=== PATIENT | female | born 1995 | race Caucasian/White ===

== ENCOUNTER 2017-03-29 05:52 | Emergency (ER) | payer OTHER, MEDICAID ==
--- NOTE | 2017-03-29 06:57 | EDM.PDOC ---
ED HPI GENERAL MEDICAL PROBLEM - General Chief Complaint: ENT Problem Stated Complaint: NOT FEELING WELL Time Seen by Provider: 03/29/17 06:45 Source of Information: Reports: Patient, RN History Limitations: Reports: No Limitations - History of Present Illness INITIAL COMMENTS - FREE TEXT/NARRATIVE: 22 yo female presents with cough and sore throat. Not able to sleep tonight. Has not been to the clinic. Has been ill since last . Smokes cigarettes. Did not have a flu vaccine this season. Cough is non-productive. Is using OTC agents without relief. Onset: Gradual Onset Date: 03/23/17 Duration: Day(s):, Getting Worse Location: Reports: Neck (throat), Chest Quality: Reports: Burning (throat) Severity: Moderate Improves with: Reports: None Worsens with: Reports: None Context: Reports: Other (No flu vaccine) Associated Symptoms: Reports: Cough. 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 Denies: Fever, Chills HEENT: Reports: Throat Pain. Denies: Throat Swelling Respiratory: Reports: Cough. Denies: Wheezing, Sputum, Hemoptysis Cardiovascular: Reports: No Symptoms GI/Abdominal: Reports: No Symptoms : Reports: No Symptoms Musculoskeletal: Reports: No Symptoms Skin: Reports: No Symptoms Neurological: Reports: No Symptoms Psychiatric: Reports: No Symptoms ED EXAM, GENERAL - Physical Exam Exam: See Below Exam Limited By: No Limitations General Appearance: Alert, WD/WN, No Apparent Distress, Obese Eye Exam: Bilateral Eye: Normal Inspection Ears: Normal External Exam, Normal Canal, Hearing Grossly Normal, Normal TMs Ear Exam: Bilateral Ear: Auricle Normal, Canal Normal, TM normal Nose: Normal Inspection, Normal Mucosa, No Blood Throat/Mouth: Normal Inspection, Normal Lips, Normal Oropharynx, Normal Voice, No Airway Compromise Head: Atraumatic, Normocephalic Neck: Normal Inspection, Supple, Non-Tender. No: Lymphadenopathy (R), Lymphadenopathy (L) Respiratory/Chest: No Respiratory Distress, Lungs Clear, Normal Breath Sounds, No Accessory Muscle Use Cardiovascular: Regular Rate, Rhythm, No Edema GI/Abdominal: Soft, Non-Tender, No Distention, Other (gravid) Back Exam: Normal Inspection. No: CVA Tenderness (R), CVA Tenderness (L) Extremities: Normal Inspection, Normal Range of Motion, Non-Tender, No Pedal Edema Neurological: Alert, Oriented, CN II-XII Intact, Normal Cognition, No Motor/ Sensory Deficits Psychiatric: Normal Affect, Normal Mood Skin Exam: Warm, Dry, Intact, Normal Color, No Rash Lymphatic: No Adenopathy Course - Vital Signs Text/Narrative:: Orthostats negative Last Recorded V/S: Last Vital Signs Temp 36.2 C 03/29/17 06:17 Pulse 113 H 03/29/17 06:17 Resp 20 03/29/17 06:17 BP 135/96 H 03/29/17 06:17 Pulse Ox 98 03/29/17 06:17 Orthostatic Blood Pressure [ 129/75 Standing] Orthostatic Blood Pressure [ 143/81 Sitting] Orthostatic Blood Pressure [ 147/88 Supine] - Orders/Labs/Meds Orders: Active Orders 24 hr Category Date Time Status Orthostatic Vital Signs [RC] ASDIRECTED Care 03/29/17 06:35 Active Departure - Departure Time of Disposition: 07:32 Disposition: Home, Self-Care 01 Condition: Fair Clinical Impression: Influenza-like illness - Discharge Information Prescriptions: Codeine/guaiFENesin [Robitussin AC] 5 - 10 ml PO Q4H PRN #1 bottle PRN Reason: Cough Referrals: Dione Hanks CNM [Primary Care Provider] - Forms: ED Department Discharge Additional Instructions: Drink ample fluids. Take Robitussin AC 1-2 tsp every 4 hrs as needed for cough. Take acetaminophen 1000 mg every 6 hrs for pain or fever control. Recheck with your doctor as needed. - My Orders Last 24 Hours: My Active Orders 03/29/17 06:35 Orthostatic Vital Signs [RC] ASDIRECTED - Assessment/Plan Last 24 Hours: My Active Orders 03/29/17 06:35 Orthostatic Vital Signs [RC] ASDIRECTED
== END 2017-03-29 07:41 | disposition home or self-care (01) ==
LOC: JP.ED 05:52
DX: O99.512 Diseases of the respiratory system complicating pregnancy, second trimester (principal); J11.1 Influenza due to unidentified influenza virus with other respiratory manifestations; O99.332 Smoking (tobacco) complicating pregnancy, second trimester; F17.210 Nicotine dependence, cigarettes, uncomplicated; Z3A.26 26 weeks gestation of pregnancy
CPT/HCPCS: 87804; 99284

== ENCOUNTER 2017-07-10 07:09 | Inpatient (IN) | payer MEDICAID ==
[2017-07-10] MEDS ORDERED: Acetaminophen 325 MG Tab PO PRN (07:58)
[2017-07-10] MEDS ORDERED: Sodium Chloride 0.9% 10 ML Syringe FLUSH PRN (07:58)
[2017-07-10] MEDS ORDERED: fentaNYL 100 MCG/2 ML SDV IVPUSH PRN (07:58)
[2017-07-10] MEDS ORDERED: Ondansetron 4 MG Tab.DIS PO PRN (07:58)
[2017-07-10] MEDS ORDERED: Misoprostol 50 MCG (1/2 of 100 MCG) Tab ONE (08:03)
[2017-07-10] MEDS ORDERED: Misoprostol 50 MCG (1/2 of 100 MCG) Tab VAG ONE ×2 (08:05→12:33)
--- NOTE | 2017-07-10 08:21 | PCM.LDHP ---
L&D History of Present Illness - General Date of Service: 07/10/17 (induction) Admit Problem/Dx: Patient Status Order with Admit Dx/Problem 07/10/17 07:58 Patient Status [ADT] Routine Admission Diagnosis/Problem Admission Diagnosis/Problem Source of Information: Patient History Limitations: Reports: No Limitations - History of Present Illness Introduction:: This 22 year old who is 40 3/7 weeks gestation presents for induction. Scan equaled dates, Just barely passed glucose 3 hr challenge. Today is spilling glucose. I have real concerns about gestation diabetes. Last ultrasound of baby at 36-37 weeks showed growth in the 82%. She also has morbid obesity and I have concern about pelvic outlet due to adipose tissue. Labs: ABO O neg and had Rhogam at 29 weeks Rubella non immune HIV negative GBS neg Timing/Duration: Reports: minutes: (3-4) Location, : Reports: Abdomen Quality: Reports: Pressure Severity: Mild Improves with: Reports: None Worsens with: Reports: None - Related Data Allergies/Adverse Reactions: Allergies Allergy/AdvReac Type Severity Reaction Status Date / Time No Known Allergies Allergy Verified 03/29/17 06:05 Home Medications: Home Meds Codeine/guaiFENesin [Robitussin AC] 5 - 10 ml PO Q4H PRN #1 bottle 03/29/17 [Rx] #103/Iron Fumarate/Fa [ ] 1 each PO DAILY 03/29/17 [ History] Past Medical History HEENT History: Reports: Impaired Vision 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: : 1 Para: 0 LMP (Approximate): ([place] 07/07/17) Neurological History: Reports: Concussion Psychiatric History: Reports: Anxiety, Depression, Suicide Attempt Social & Family History - Tobacco Use Smoking Status *Q: Current Every Day Smoker Years of Tobacco use: 5 Packs/Tins Daily: 0.5 - Caffeine Use Caffeine Use: Reports: Coffee, Tea - Recreational Drug Use Recreational Drug Use: No H&P Review of Systems - Review of Systems: Review Of Systems: See Below General: Reports: No Symptoms HEENT: Reports: No Symptoms Pulmonary: Reports: No Symptoms Cardiovascular: Reports: No Symptoms Gastrointestinal: Reports: No Symptoms Genitourinary: Reports: No Symptoms Musculoskeletal: Reports: No Symptoms Skin: Reports: No Symptoms Psychiatric: Reports: No Symptoms Neurological: Reports: No Symptoms Hematologic/Lymphatic: Reports: No Symptoms Immunologic: Reports: No Symptoms L&D Exam - Exam Exam: See Below - Vital Signs Weight: 302 lb 9.6 oz - OB Specific Contraction Intensity: Mild Movement: Active Heart Tones: Present Heart Tones per Min: 135 Heart Rate (FHR) Variability: Moderate (6-25 bmp) Presentation: Vertex Estimated Weight: 8-9 pounds - Martell Score Martell Score Cervix Position: Anterior Martell Score Consistency: Soft Martell Score Effacement: >80% Martell Score Dilation: 1-2 cm Martell Score 's Station: -1 ,0 Martell Score Total: 10 - Exam General: Alert, Oriented HEENT: PERRLA, Conjunctiva Clear, EACs Clear, EOMI, Hearing Intact, Mucosa Moist & [place], Nares Patent, Normal Nasal Septum, Posterior Pharynx Clear, TMs Clear Neck: Supple, Trachea Midline Lungs: Clear to Auscultation, Normal Respiratory Effort Cardiovascular: Regular Rate, Regular Rhythm GI/Abdominal Exam: Normal Bowel Sounds, Soft, Non-Tender, No Organomegaly, No Distention, No Abnormal Bruit, No Mass, Pelvis Stable Rectal Exam: Normal Exam, Normal Rectal Tone Genitourinary: Normal external exam, Normal bimanual exam, Normal speculum exam Back Exam: Normal Inspection, Full Range of Motion Extremities: Normal Inspection, Normal Range of Motion, Non-Tender, No Pedal Edema, Normal Capillary Refill Skin: Warm, Dry, Intact Neurological: Cranial Nerves Intact, Reflexes Equal Bilateral Psychiatric: Alert, Normal Affect, Normal Mood - Patient Data Lab Results Last 24 hrs: Laboratory Results - last 24 hr 07/10/17 07/10/17 Range/Units 07:35 07:44 WBC 8.8 (4.5-11.0) K/uL RBC 4.04 (3.30-5.50) M/uL Hgb 11.7 L (12.0-15.0) g/dL Hct 34.9 L (36.0-48.0) % MCV 86 (80-98) fL MCH 29 (27-31) pg MCHC 34 (32-36) % Plt Count 269 (150-400) K/uL Neut % (Auto) 69 H (36-66) % Lymph % (Auto) 20 L (24-44) % Angelina % (Auto) 10 H (2-6) % Eos % (Auto) 1 L (2-4) % Baso % (Auto) 0 (0-1) % Urine Color Yellow Urine Appearance Cloudy Urine pH 6.0 (4.5-8.0) Ur Specific [place] 1.015 (1.008-1.030) Urine Protein Negative (NEGATIVE) mg/dL Urine Glucose (UA) 100 H (NEGATIVE) mg/dL Urine Ketones Negative (NEGATIVE) mg/dL Urine Occult Blood Negative (NEGATIVE) Urine Nitrite Negative (NEGATIVE) Urine Bilirubin Negative (NEGATIVE) Urine Urobilinogen Normal (NORMAL) mg/dL Ur Leukocyte Esterase Negative (NEGATIVE) Urine RBC 0-5 (0-5) Urine WBC 0-5 (0-5) Ur Epithelial Cells Moderate Amorphous Sediment Rare Urine Bacteria Rare Urine Mucus Not seen Result Diagrams: 07/10/17 07:44 - Problem List (1) Morbid obesity due to excess calories SNOMED Code(s): 663914349 ICD Code: E66.01 - MORBID (SEVERE) OBESITY DUE TO EXCESS CALORIES Status: Acute Current Visit: Yes (2) Elective induction of labor planned SNOMED Code(s): 602846695 ICD Code: [id number] - Status: Acute Current Visit: Yes (3) SNOMED Code(s): 55401089 ICD Code: Z34.90 - ENCNTR FOR SUPRVSN OF NORMAL , UNSP, UNSP TRIMESTER Status: Acute Current Visit: Yes Qualifiers: Weeks of gestation: 40 weeks Qualified Code(s): Z3A.40 - 40 weeks gestation of Problem List Initiated/Reviewed/Updated: Yes Orders Last 24hrs: Active Orders 24 hr Category Date Time Status Patient Status [ADT] Routine ADT 07/10/17 07:58 Active Antiembolic Devices [RC] .Routine Care 07/10/17 08:00 Active Communication Order [RC] ASDIRECTED Care 07/10/17 07:58 Active Heart Tones [RC] PER UNIT ROUTINE Care 07/10/17 07:58 Active May Shower [RC] ASDIRECTED Care 07/10/17 07:58 Active Notify Provider Vital Signs [RC] PRN Care 07/10/17 07:58 Active Notify Provider [RC] PRN Care 07/10/17 07:58 Active Up ad Iesha [RC] ASDIRECTED Care 07/10/17 07:58 Active VTE/DVT Education [RC] Click to Edit Care 07/10/17 08:00 Active Vital Signs [RC] PER UNIT ROUTINE Care 07/10/17 07:58 Active Clear Liquid Diet [DIET] Diet 07/10/17 Lunch Active Acetaminophen [Tylenol] Med 07/10/17 07:58 Active 650 mg PO Q4H PRN Ondansetron [Zofran ODT] Med 07/10/17 07:58 Active 4 mg PO Q4H PRN Oxytocin/Normal Saline [Pitocin in NS 20 Units/1,000 ML Med 07/10/17 08:01 Active ] 20 unit in 1,000 ml IV ONETIME Sodium Chloride 0.9% [Saline Flush] Med 07/10/17 07:58 Active 10 ml FLUSH ASDIRECTED PRN fentaNYL [Sublimaze] Med 07/10/17 07:58 Active 100 mcg IVPUSH Q1H PRN DVT/VTE Prophylaxis Reflex [OM.PC] Routine Oth 07/10/17 07:58 Ordered Saline Lock Insert [OM.PC] Routine Oth 07/10/17 07:58 Ordered Resuscitation Status Routine Resus Stat 07/10/17 07:58 Ordered Medication Orders Acetaminophen (Tylenol) 650 mg PO Q4H PRN PRN Reason: Pain (Mild 1-3) and fever Fentanyl (Sublimaze) 100 mcg IVPUSH Q1H PRN PRN Reason: Pain (moderate 4-6) Oxytocin/Sodium Chloride (Pitocin In Ns 20 Units/1,000 Ml) 20 unit in 1,000 mls @ 999 mls/hr IV ONETIME ONE PRN Reason: Protocol Stop: 07/10/17 09:01 Ondansetron HCl (Zofran Odt) 4 mg PO Q4H PRN PRN Reason: Nausea/Vomiting Sodium Chloride (Saline Flush) 10 ml FLUSH ASDIRECTED PRN PRN Reason: Keep Vein Open Assessment/Plan Comment:: 07/10/17 40 3/7 weeks , G1, 22 yr old morbid obesity Marginal blood sugar control induction for above Plan: Misoprostol 50 mcg vaginally at 0810 up and about after protocol monitoring reassess at noon pain management per patient request plan for vaginal delivery later today
[2017-07-10] MEDS ORDERED: Oxytocin 10 Units/1 ML SDV ONE ×2 (14:28→14:43)
[2017-07-10] MEDS ORDERED: cefOXitin 1 GM Vial ONE (14:29)
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
[2017-07-10] MEDS ORDERED: ePHEDrine 50 MG/ML SDV ONE (14:42)
[2017-07-10] MEDS ORDERED: Ondansetron 4 MG/2 ML SDV ONE (14:43)
[2017-07-10] MEDS ORDERED: Lactated Ringers 1,000 ML ONE (14:43)
[2017-07-10] MEDS ORDERED: cefOXitin 2 GM Vial ONE (15:20)
[2017-07-10] MEDS ORDERED: HYDROmorphone/Normal Saline 15 MG/30 ML PCA IV PRN (16:38)
[2017-07-10] MEDS ORDERED: Naloxone 0.4 MG/ML SDV IV PRN (16:38)
[2017-07-10] MEDS ORDERED: Ondansetron 4 MG/2 ML SDV IVPUSH PRN (16:56)
[2017-07-10] MEDS: Dextrose 5%-Lactated Ringers 1,000 ML IV SCH (18:10)
[2017-07-10] MEDS: cefOXitin 2 GM in Sodium Chloride 0.9% 50 ML IV SCH (22:35)
[2017-07-11] MEDS: Dextrose 5%-Lactated Ringers 1,000 ML IV SCH ×2 (00:11→06:26)
[2017-07-11] MEDS ORDERED: Morphine PF 150 MG/30 ML PCA Syringe IV PRN (05:18)
[2017-07-11] MEDS: cefOXitin 2 GM in Sodium Chloride 0.9% 50 ML IV SCH ×4 (05:23→21:47)
--- NOTE | 2017-07-11 07:07 | PCM.SN ---
- Free Text/Narrative Note: Cameron is a 22 yo female POD1 s/p elective section without complications. Pt is doing well today with adequate urine output. Incisional pain controlled at 6/10 with morphine. Pt does not report any other pain. Vitally stable. Physical exam within normal limits. Plan: -D/C Mendosa at earliest convenience -Encourage ambulation as pain permits -Give colase to soften stools -Full diet -Discuss non-surgical weight loss with patient
[2017-07-11] MEDS ORDERED: Dextrose 5%-Lactated Ringers 1,000 ML IV SCH (07:09)
[2017-07-11] MEDS: Docusate Sodium 100 MG Cap PO SCH ×2 (10:21→21:10)
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
[2017-07-11] MEDS: Acetaminophen/oxyCODONE 325-5 MG Tab PO PRN ×3 (13:48→21:47)
[2017-07-11] MEDS: Ibuprofen 600 MG Tab PO SCH ×2 (13:49→20:55)
[2017-07-11] MEDS ORDERED: Measles, Mumps & Rubella Vaccine 0.5 ML SDV SUBCUT ONE (15:00)
[2017-07-11] MEDS: Sertraline 50 MG Tab PO SCH (21:11)
[2017-07-12] MEDS: Acetaminophen/oxyCODONE 325-5 MG Tab PO PRN ×5 (01:43→22:10)
[2017-07-12] MEDS: Ibuprofen 600 MG Tab PO SCH ×4 (01:45→20:18)
[2017-07-12] MEDS: cefOXitin 2 GM in Sodium Chloride 0.9% 50 ML IV SCH ×3 (03:05→17:14)
[2017-07-12] MEDS ORDERED: Bisacodyl 5 MG Tab PO ONE (08:00)
[2017-07-12] MEDS ORDERED: Magnesium Hydroxide 400 MG/5 ML Susp 30 ML Cup PO ONE (08:00)
--- NOTE | 2017-07-12 08:09 | PN ---
DATE OF SERVICE: 07/10/2017 SUBJECTIVE: Cameron is postop day 2, following a section. She has not had a bowel movement. Pain has controlled with Percocet and ibuprofen. Up, ambulating, has concerns about her vicky, and TOSIN drain. REVIEW OF SYSTEMS: Remainder of review of systems negative for any pertinent positives and negatives. OBJECTIVE: GENERAL: Cameron is a pleasant, 22-year-old female. Alert and orientated. VITAL SIGNS: TPR is 96.3, 79, and 16. Blood pressure 131/78. HEENT: Negative. NECK: Supple. HEART: Regular rate and rhythm. LUNGS: Clear. ABDOMEN: TOSIN drain is intact and has drained 50 mL of a light red drainage. Right Aquacel dressing is intact. EXTREMITIES: Without peripheral edema and no calf pain. ASSESSMENT: section, excision of peritoneal body associated with adherence to greater omentum for term with failure to progress and peritoneal body adherent to greater omentum. Date of surgery on 07/10/2017. Surgeon, José Ye MD. PLAN: 1. Remove Aquacel dressing. 2. May shower. 3. Use abdominal binder to prevent lower abdominal fold to fold over on to staple line. 4. Teach the patient how to strip, drain, measure, and record TOSIN drain 4 times a day. 5. Rx milk of magnesia 30 mL now. 6. 20 mg 1 hour after milk of magnesia. 7. Plan discharge in a.m. 8. Good pulmonary function. 9. We will evaluate p.r.n. or in a.m. Taylor Castro PA-C /[id number]
[2017-07-12] MEDS: Docusate Sodium 100 MG Cap PO SCH ×2 (09:23→22:03)
[2017-07-12] MEDS ORDERED: Measles, Mumps & Rubella Vaccine 0.5 ML SDV SUBCUT ONE (16:30)
[2017-07-12] MEDS ORDERED: Magnesium Citrate Solution 296 ML Bottle PO ONE (20:26)
[2017-07-12] MEDS: Sertraline 50 MG Tab PO SCH (22:03)
[2017-07-13] MEDS: Ibuprofen 600 MG Tab PO SCH ×2 (01:00→07:43)
[2017-07-13] MEDS: Acetaminophen/oxyCODONE 325-5 MG Tab PO PRN (02:31)
[2017-07-13] MEDS ORDERED: Doxycycline 100 MG Cap PO SCH (07:30)
[2017-07-13] MEDS: Docusate Sodium 100 MG Cap PO SCH (09:48)
--- NOTE | 2017-07-14 08:17 | DISCH ---
ADMISSION DIAGNOSES: 1. Term . 2. Elective induction of labor. 3. Morbid obesity due to excess of calories. 4. Elevated glucose tolerance test. DISCHARGE DIAGNOSES: section, excision of peritoneal body associated with adherence to greater omentum in term with failure to progress and peritoneal body adherent to greater omentum. DATE OF SURGERY: 07/10/2017. SURGEON: José Ye M.D. HISTORY: Cameron Mcgrath is a 22-year-old female, who presented with an elective induction, and she had failure to progress. After preoperative evaluation and discussion of possible risks and benefits, she wished to proceed with surgical procedure. HOSPITAL COURSE: Cameron had her surgery on 07/10/2017. She had no operative complications. On postop day #1, she was started on a regular diet, oral pain medication, [place] was discontinued, and she was started on a stool softener. On postop day #2, concern was for redness in the lower abdominal fold. Her Aquacel dressing was removed, and she did get a tub bath last evening. Reports bleeding in her mid incision, incision. Pain has been controlled, activity has been good, and able to be discharged to home. PHYSICAL EXAMINATION: GENERAL: Cameron Mcgrath is a 22-year-old female. VITAL SIGNS: Height is 5 feet and 1 inch. Weight is 302 pounds. TPR is 95.6, 100, and 18. Blood pressure 128/68. HEENT: Negative. NECK: Supple. HEART: Regular rate and rhythm. LUNGS: Clear. ABDOMEN: Sutures in place. She has a TOSIN drain, which has been draining 20 mL of a light pink drainage. Above her incision towards the mid left, she has a 4-inch area that is firm, pink, and slightly warm to touch. Reports more tenderness in that area. The sutures are intact. EXTREMITIES: Without peripheral edema and no calf tenderness. DISPOSITION: Discharged to home. CONDITION: Stable and improving. FOLLOWUP: Followup appointment with Taylor Castro PA-C, on 07/21/2017 at 10 a.m. HOME MEDICATIONS: 1. Percocet 5/325 mg 1 to 2 q.4 hours p.r.n. for pain, #30. 2. Colace 100 mg p.o. b.i.d., #100. 3. Doxycycline 100 mg p.o. q.12 hours, #20. 4. Ibuprofen 600 mg q.6 hours p.r.n. for lesser pain. 5. She is to resume her home medications of vitamin once daily and Sertraline 100 mg once a day. DIET: Usual diet as tolerated. Drink 8 to 10 glasses of water a day. ACTIVITY: As tolerated. No lifting over car seat and baby for 6 weeks. Driving: Do not drive on pain medication for at least 1 week. Shower/Bathing: May shower. No tub baths for 3 months. DISCHARGE INSTRUCTIONS: Notify provider if any fever, nausea, or vomiting. Keep the site clean and dry. Wear abdominal binder to avoid the lower abdominal folds to touch or rub each other. SPECIAL INSTRUCTIONS: Strip, empty, measure, and record TOSIN drain 4 times a day. Use incentive spirometer 10 times in a row every hour while awake. Thais Perkins was notified of tub bath and redness of the incision. She will see baby in 1 week and will check mother's incision at that time.
== END 2017-07-13 12:20 | disposition home or self-care (01) | DRG 766 ==
LOC: JP.OB 07:09 → JP.MS 15:36 → JP.OB 15:36 → OBSVTOIN 15:36
PROVIDERS: ADMIT Nurse Practitioner Family; ATTEND Surgery
PROC: 10D00Z1 Extraction of Products of Conception, Low, Open Approach (ICD-10-PCS; principal; 2017-07-10)
PROC: 0DBU0ZZ Excision of Omentum, Open Approach (ICD-10-PCS; 2017-07-10)
PROC: 0DBW0ZZ Excision of Peritoneum, Open Approach (ICD-10-PCS; 2017-07-10)
PROC: 3E0P7VZ Introduction of Hormone into Female Reproductive, Via Natural or Artificial Opening (ICD-10-PCS; 2017-07-10)
PROC: 3E033VJ Introduction of Other Hormone into Peripheral Vein, Percutaneous Approach (ICD-10-PCS; 2017-07-10)
DX: O62.0 Primary inadequate contractions (principal); O99.214 Obesity complicating childbirth; E66.01 Morbid (severe) obesity due to excess calories; O99.814 Abnormal glucose complicating childbirth; O99.334 Smoking (tobacco) complicating childbirth; Z3A.40 40 weeks gestation of pregnancy; Z37.0 Single live birth; O61.0 Failed medical induction of labor; O99.62 Diseases of the digestive system complicating childbirth; K66.0 Peritoneal adhesions (postprocedural) (postinfection); X37.2XXA Blizzard (snow)(ice), initial encounter; O77.0 Labor and delivery complicated by meconium in amniotic fluid
CPT/HCPCS: 36415; 51702; 59409; 80305; 81001; 85025; 85027; 85460; 86850; 86900; 86901; 88304; 88307; 90707; 94762; A9270-GY; G0010; J0694; J1170; J2270; J2405; J2590; J2790; J7042; J7050; J7120

== ENCOUNTER 2017-07-14 21:11 | Emergency (ER) | payer MEDICAID ==
--- NOTE | 2017-07-14 21:48 | EDM.PDOC ---
ED HPI GENERAL MEDICAL PROBLEM - General Chief Complaint: Wound Recheck Stated Complaint: INFECTED?? Time Seen by Provider: 07/14/17 21:39 Source of Information: Reports: Patient, Family, Old Records, RN Notes Reviewed History Limitations: Reports: No Limitations - History of Present Illness INITIAL COMMENTS - FREE TEXT/NARRATIVE: 22-year-old female presents emergency department today with concern about redness developing over her abdomen. She is postop day 4 from a section , states she's been doing well without however over the last 24 hours she's noticed some redness a little bit of warmth coming from her surgical site she does have a TOSIN drain in which has been producing fluid every 4 hours. - Related Data Allergies Allergy/AdvReac Type Severity Reaction Status Date / Time No Known Allergies Allergy Verified 03/29/17 06:05 Home Meds: Home Meds #103/Iron Fumarate/Fa [ ] 1 each PO DAILY 03/29/17 [ History] Sertraline [Zoloft] 100 mg PO BEDTIME 07/10/17 [History] Acetaminophen/oxyCODONE [Percocet 325-5 MG] 1 - 2 tab PO Q4H PRN #30 tablet 12/23 [Rx] Docusate Sodium [Colace] 100 mg PO BID #100 cap 07/13/17 [Rx] Doxycycline Calcium [IMW: Doxycycline] 100 mg PO Q12H #20 capsule 07/13/17 [Rx] Ibuprofen [IJD: Ibuprofen] 600 mg PO Q6H PRN #100 tablet 07/13/17 [Rx] Past Medical History HEENT History: Reports: Impaired Vision 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: Neurological History: Reports: Concussion Psychiatric History: Reports: Anxiety, Depression, Suicide Attempt Endocrine/Metabolic History: Reports: Diabetes, Gestational, Obesity/BMI 30+ - Infectious Disease History Infectious Disease History: Reports: None - Past Surgical History Female Surgical History: Reports: Section Social & Family History - Family History Family Medical History: Noncontributory - Tobacco Use Smoking Status *Q: Current Every Day Smoker Years of Tobacco use: 5 Packs/Tins Daily: 0.2 Used Tobacco, but Quit: No Month Tobacco Last Used: July Second Hand Smoke Exposure: No - Caffeine Use Caffeine Use: Reports: Coffee, Soda - Recreational Drug Use Recreational Drug Use: No ED ROS GENERAL - Review of Systems Review Of Systems: See Below Constitutional: Denies: Fever, Chills HEENT: Reports: No Symptoms Respiratory: Reports: No Symptoms Cardiovascular: Reports: No Symptoms GI/Abdominal: Reports: No Symptoms : Reports: No Symptoms Skin: Reports: Pallor, Rash, Other (Drainage) ED EXAM, SKIN/RASH Exam: See Below Text/Narrative:: Abdomen is soft and nontender surgical wound is clean dry and intact however there is erythema from the surgical wound up the umbilicus slightly warm to the touch firm Exam Limited By: No Limitations General Appearance: Alert, WD/WN, No Apparent Distress Respiratory/Chest: No Respiratory Distress, Lungs Clear, Normal Breath Sounds, No Accessory Muscle Use Cardiovascular: Regular Rate, Rhythm, No Murmur Course - Vital Signs Last Recorded V/S: Last Vital Signs Temp 95.8 F 07/14/17 21:28 Pulse 117 H 07/14/17 21:28 Resp 16 07/14/17 21:28 BP 153/94 H 07/14/17 21:28 Pulse Ox 98 07/14/17 21:28 - Orders/Labs/Meds Orders: Active Orders 24 hr Category Date Time Status CULTURE BODY FLUID + SMEAR [RM] Stat Lab 07/14/17 22:37 Ordered Ampicillin/Sulbactam Na [Unasyn] 3 gm Med 07/14/17 22:37 Stop Req Sodium Chloride 0.9% [Normal Saline] 100 ml IV ONETIME Medication Orders Ampicillin Sodium/Sulbactam (Sodium 3 gm/ Sodium Chloride) 100 mls @ 200 mls/ hr IV ONETIME ONE Stop: 07/14/17 23:06 Labs: Laboratory Tests 07/14/17 07/14/17 07/14/17 Range/Units 21:44 21:44 21:44 WBC 6.5 (4.5-11.0) K/uL RBC 3.34 (3.30-5.50) M/uL Hgb 9.6 L D (12.0-15.0) g/dL Hct 29.7 L (36.0-48.0) % MCV 89 (80-98) fL MCH 29 (27-31) pg MCHC 32 (32-36) % Plt Count 260 (150-400) K/uL Neut % (Auto) 63 (36-66) % Lymph % (Auto) 23 L (24-44) % [place] % (Auto) 12 H (2-6) % Eos % (Auto) 2 (2-4) % Baso % (Auto) 0 (0-1) % Sodium 143 (140-148) mmol/L Potassium 3.9 (3.6-5.2) mmol/L Chloride 108 (100-108) mmol/L Carbon Dioxide 26 (21-32) mmol/L Anion Gap 9.4 (5.0-14.0) mmol/L BUN 9 (7-18) mg/dL Creatinine 0.7 (0.6-1.0) mg/dL Est Cr Clr Drug Dosing 96.74 mL/min Estimated GFR (MDRD) > 60 (>60) Glucose 97 (74-106) mg/dL Lactic Acid 0.9 (0.4-2.0) mmol/L Calcium 8.1 L (8.5-10.1) mg/dL Meds: Medications Generic Name Dose Route Start Last Admin Trade Name Freq PRN Reason Stop Dose Admin Ampicillin Sodium/Sulbactam 100 mls @ 200 mls/hr 07/14/17 22:37 Sodium 3 gm/ Sodium Chloride IV 07/14/17 23:06 ONETIME ONE Departure - Departure Time of Disposition: 23:02 Disposition: Home, Self-Care 01 Condition: Good Clinical Impression: Cellulitis Qualifiers: Site of cellulitis: trunk Site of cellulitis of trunk: abdominal wall Qualified Code(s): L03.311 - Cellulitis of abdominal wall - Discharge Information Referrals: Karen Perkins CNM [Primary Care Provider] - Forms: ED Department Discharge Additional Instructions: Keep your follow-up appointment on Monday, take full course of antibiotics of clindamycin for your skin infection, stop the antibiotics of doxycycline call or return to the emergency department with worsening of symptoms - My Orders Last 24 Hours: My Active Orders 07/14/17 22:37 CULTURE BODY FLUID + SMEAR [RM] Stat Ampicillin/Sulbactam Na [Unasyn] 3 gm Sodium Chloride 0.9% [Normal Saline] 100 ml IV ONETIME - Assessment/Plan Last 24 Hours: My Active Orders 07/14/17 22:37 CULTURE BODY FLUID + SMEAR [RM] Stat Ampicillin/Sulbactam Na [Unasyn] 3 gm Sodium Chloride 0.9% [Normal Saline] 100 ml IV ONETIME Plan: Assessment Acuity = acute Site and laterality = cellulitis complicated patient is postop day 4 section Etiology = probable bacterial cause Manifestations = none Location of injury = Home Lab values = CBC, bMP, lactic acid all within normal limits Plan Called discussed case with Dr. Ye general surgeon chairperson anesthesiology recommended dose of Unasyn 3 g now she is currently on doxycycline will be stopped she's can be switched to clindamycin 300 mg every 8 hours 10 days This note was dictated using [employer] voice recognition software please call with any questions on syntax or cassia.
[2017-07-14] MEDS ORDERED: Ampicillin/Sulbactam Na 3 GM in Sodium Chloride 0.9% 100 ML IV ONE (22:37)
[2017-07-14] MEDS ORDERED: Non-Formulary Medication 1 Each IM STA (22:59)
[2017-07-14] MEDS ORDERED: Lidocaine 1% 20 ML MDV INJECT ONE (23:01)
[2017-07-14] MEDS ORDERED: Ampicillin/Sulbactam Na 3 GM Vial ONE (23:04)
== END 2017-07-14 23:32 | disposition home or self-care (01) ==
LOC: JP.ED 21:11
DX: O86.0 Infection of obstetric surgical wound (principal); L03.311 Cellulitis of abdominal wall; F17.210 Nicotine dependence, cigarettes, uncomplicated; O99.215 Obesity complicating the puerperium; O99.335 Smoking (tobacco) complicating the puerperium; Z79.899 Other long term (current) drug therapy
CPT/HCPCS: 36415; 80048; 83605; 85025; 87070; 87205; 99284; A9270-GY

== ENCOUNTER 2017-07-19 16:28 | Inpatient (IN) | payer MEDICAID ==
--- NOTE | 2017-07-19 16:59 | EDM.PDOC ---
ED HPI GENERAL MEDICAL PROBLEM - General Chief Complaint: Skin Complaint Stated Complaint: SENT FROM CLINIC/INFECTION Time Seen by Provider: 07/19/17 16:40 Source of Information: Reports: Patient, Provider History Limitations: Reports: No Limitations - History of Present Illness INITIAL COMMENTS - FREE TEXT/NARRATIVE: 22-year-old female who had a 9 days ago has been developing increased redness and tenderness through the incision over the last 5 days. Despite getting IV antibiotics in the clinic yesterday the provider feels it is getting worse, it looks worse. Patient is not running a fever but she's been feeling chilled over the last 2 days. The clinic sent her over to the emergency room. Surgery had not been called. Patient has no dysuria or shortness of breath. There is still a GP drain present on the right abdomen, it feels more tender and the patient thinks it's more erythematous but the drainage is unchanged. Onset: Gradual Severity: Moderate Associated Symptoms: Reports: Fever/Chills, Other (Incision drainage, abdominal pain) Abdominal Pain Score (Numeric/FACES): 5 - Related Data Allergies Allergy/AdvReac Type Severity Reaction Status Date / Time No Known Allergies Allergy Verified 03/29/17 06:05 Home Meds: Home Meds Sertraline [Zoloft] 100 mg PO BEDTIME 07/10/17 [History] Acetaminophen/oxyCODONE [Percocet 325-5 MG] 1 - 2 tab PO Q4H PRN #30 tablet 12/23 [Rx] Docusate Sodium [Colace] 100 mg PO BID #100 cap 07/13/17 [Rx] Ibuprofen [IJD: Ibuprofen] 600 mg PO Q6H PRN #100 tablet 07/13/17 [Rx] Clindamycin HCl [Cleocin] 300 mg PO TID 07/19/17 [History] Past Medical History HEENT History: Reports: Impaired Vision 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: Neurological History: Reports: Concussion Psychiatric History: Reports: Anxiety, Depression, Suicide Attempt Endocrine/Metabolic History: Reports: Diabetes, Gestational, Obesity/BMI 30+ - Infectious Disease History Infectious Disease History: Reports: None - Past Surgical History Female Surgical History: Reports: Section Social & Family History - Family History Family Medical History: Noncontributory - Tobacco Use Smoking Status *Q: Current Every Day Smoker Years of Tobacco use: 5 Packs/Tins Daily: 0.2 Used Tobacco, but Quit: No Month/Year Tobacco Last Used: July Second Hand Smoke Exposure: No - Caffeine Use Caffeine Use: Reports: Coffee, Soda - Recreational Drug Use Recreational Drug Use: No ED ROS GENERAL - Review of Systems Review Of Systems: See Below Constitutional: Reports: Chills HEENT: Reports: No Symptoms Respiratory: Denies: Shortness of Breath, Cough Cardiovascular: Denies: Chest Pain GI/Abdominal: Reports: Abdominal Pain. Denies: Diarrhea : Reports: No Symptoms Skin: Reports: Erythema Neurological: Reports: No Symptoms ED EXAM, SKIN/RASH Exam: See Below Exam Limited By: No Limitations General Appearance: Alert, No Apparent Distress Respiratory/Chest: No Respiratory Distress, Lungs Clear Cardiovascular: Regular Rate, Rhythm GI/Abdominal: Other (Patient has a fairly large incision over the lower abdomen pannus closed by vicky. There is a significant amount of erythema extending from the incision. There is also firmness under the erythema and tenderness. The TOSIN drain site has some erythema around the exit site.) Course - Vital Signs Last Recorded V/S: Last Vital Signs Temp 97.4 F 07/21/17 03:20 Pulse 67 07/21/17 03:20 Resp 16 07/21/17 03:20 BP 141/73 H 07/21/17 03:20 Pulse Ox 98 07/21/17 03:20 - Orders/Labs/Meds Orders: Medication Orders Acetaminophen (Tylenol) 650 mg PO Q4H PRN PRN Reason: Pain (Mild 1-3)/fever Last Admin: 07/20/17 11:47 Dose: 650 mg Admin: 07/19/17 23:19 Dose: 650 mg Albuterol (Proventil Neb Soln) 2.5 mg NEB Q4H PRN PRN Reason: Shortness Of Breath/wheezing Diphenhydramine HCl (Benadryl) 25 mg PO Q4H PRN PRN Reason: Itching Last Admin: 07/20/17 22:16 Dose: 25 mg Admin: 07/20/17 13:39 Dose: 25 mg Docusate Sodium (Colace) 100 mg PO BID EVETTE Last Admin: 07/20/17 20:37 Dose: Not Given Admin: 07/20/17 08:44 Dose: 100 mg Admin: 07/19/17 22:12 Dose: Not Given Piperacillin/Tazobactam/ (Dextrose 3.375 gm/ Premix) 50 mls @ 100 mls/hr IV Q6H [facility] Last Admin: 07/21/17 02:26 Dose: 100 mls/hr Admin: 07/20/17 20:30 Dose: 100 mls/hr Admin: 07/20/17 15:25 Dose: 100 mls/hr Admin: 07/20/17 08:45 Dose: 100 mls/hr Vancomycin HCl 2 gm/ Sodium (Chloride) 500 mls @ 167 mls/hr IV Q12H [facility] Last Admin: 07/20/17 22:13 Dose: 167 mls/hr Admin: 07/20/17 10:58 Dose: 250 mls/hr Ibuprofen (Motrin) 600 mg PO Q6H PRN PRN Reason: Pain Last Admin: 07/20/17 22:12 Dose: 600 mg Lorazepam (Ativan) 1 mg IV Q6H PRN PRN Reason: Nausea/Vomiting Morphine Sulfate (Morphine) 2 mg IVPUSH Q2H PRN PRN Reason: Pain (severe 7-10) Nicotine (Habitrol) 14 mg TRDERM DAILY [facility] Last Admin: 07/20/17 08:44 Dose: 14 mg Nicotine Polacrilex (Nicorelief) 2 mg CHEW Q2H PRN PRN Reason: Withdrawal Symptoms Ondansetron HCl (Zofran Odt) 4 mg PO Q6H PRN PRN Reason: Nausea able to take PO Ondansetron HCl (Zofran) 4 mg IV Q4H PRN PRN Reason: Nausea/Vomiting Oxycodone HCl (Oxycodone) 5 mg PO Q4H PRN PRN Reason: Pain (moderate 4-6) Sertraline HCl (Zoloft) 100 mg PO BEDTIME [facility] Last Admin: 07/20/17 20:29 Dose: 100 mg Admin: 07/19/17 21:16 Dose: 100 mg Sodium Chloride (Saline Flush) 10 ml FLUSH ASDIRECTED PRN PRN Reason: Keep Vein Open Last Admin: 07/19/17 17:39 Dose: 10 ml Zolpidem Tartrate (Ambien) 5 mg PO BEDTIME PRN PRN Reason: Sleep Labs: Laboratory Tests 07/19/17 07/19/17 Range/Units 16:50 16:50 WBC 6.4 (4.5-11.0) K/uL RBC 3.63 (3.30-5.50) M/uL Hgb 10.6 L (12.0-15.0) g/dL Hct 31.5 L (36.0-48.0) % MCV 87 (80-98) fL MCH 29 (27-31) pg MCHC 34 (32-36) % Plt Count 350 (150-400) K/uL Neut % (Auto) 63 (36-66) % Lymph % (Auto) 24 (24-44) % [place] % (Auto) 11 H (2-6) % Eos % (Auto) 2 (2-4) % Baso % (Auto) 1 (0-1) % Sodium 142 (140-148) mmol/L Potassium 4.1 (3.6-5.2) mmol/L Chloride 106 (100-108) mmol/L Carbon Dioxide 26 (21-32) mmol/L Anion Gap 9.8 (5.0-14.0) mmol/L BUN 8 (7-18) mg/dL Creatinine 0.7 (0.6-1.0) mg/dL Est Cr Clr Drug Dosing 96.74 mL/min Estimated GFR (MDRD) > 60 (>60) Glucose 84 (74-106) mg/dL Calcium 8.5 (8.5-10.1) mg/dL Meds: Medications Generic Name Dose Route Start Last Admin Trade Name Freq PRN Reason Stop Dose Admin Acetaminophen 650 mg 07/19/17 20:51 07/20/17 11:47 Tylenol PO 650 mg Q4H PRN Administration Pain (Mild 1-3)/fever Albuterol 2.5 mg 07/19/17 20:51 Proventil Neb Soln NEB Q4H PRN Shortness Of Breath/wheezing Diphenhydramine HCl 25 mg 07/20/17 13:21 07/20/17 22:16 Benadryl PO 25 mg Q4H PRN Administration Itching Docusate Sodium 100 mg 07/19/17 21:00 07/20/17 20:37 Colace PO Not Given BID EVETTE Piperacillin/Tazobactam/ 50 mls @ 100 mls/hr 07/20/17 09:00 07/21/17 02:26 Dextrose 3.375 gm/ Premix IV 100 mls/hr Q6H EVETTE Administration Vancomycin HCl 2 gm/ Sodium 500 mls @ 167 mls/hr 07/20/17 10:00 07/20/17 22: 13 Chloride IV 167 mls/hr Q12H EVETTE Administration Ibuprofen 600 mg 07/20/17 21:54 07/20/17 22:12 Motrin PO 600 mg Q6H PRN Administration Pain Lorazepam 1 mg 07/19/17 20:51 Ativan IV Q6H PRN Nausea/Vomiting Morphine Sulfate 2 mg 07/19/17 20:51 Morphine IVPUSH Q2H PRN Pain (severe 7-10) Nicotine 14 mg 07/20/17 09:00 07/20/17 08:44 Habitrol TRDERM 14 mg DAILY EVETTE Administration Nicotine Polacrilex 2 mg 07/19/17 20:51 Nicorelief CHEW Q2H PRN Withdrawal Symptoms Ondansetron HCl 4 mg 07/19/17 20:51 Zofran Odt PO Q6H PRN Nausea able to take PO Ondansetron HCl 4 mg 07/19/17 20:51 Zofran IV Q4H PRN Nausea/Vomiting Oxycodone HCl 5 mg 07/19/17 20:51 Oxycodone PO Q4H PRN Pain (moderate 4-6) Sertraline HCl 100 mg 07/19/17 21:00 07/20/17 20:29 Zoloft PO 100 mg BEDTIME EVETTE Administration Sodium Chloride 10 ml 07/19/17 17:17 07/19/17 17:39 Saline Flush FLUSH 10 ml ASDIRECTED PRN Administration Keep Vein Open Zolpidem Tartrate 5 mg 07/19/17 20:51 Ambien PO BEDTIME PRN Sleep Discontinued Medications Generic Name Dose Route Start Last Admin Trade Name Freq PRN Reason Stop Dose Admin Sodium Chloride 80 mls @ 3 mls/sec 07/19/17 17:30 07/19/17 17:40 Normal Saline IV 3 mls/sec ASDIRECTED EVETTE Administration Piperacillin Sod/Tazobactam 50 mls @ 100 mls/hr 07/19/17 21:00 07/20/17 02:52 Sod 3.375 gm/ Sodium Chloride IV 100 mls/hr Q6H EVETTE Administration Sodium Chloride 1,000 mls @ 125 mls/hr 07/19/17 20:51 07/20/17 07:57 Normal Saline IV 125 mls/hr ASDIRECTED EVETTE Administration Vancomycin HCl 2,000 mg/ 500 mls @ 250 mls/hr 07/19/17 22:00 07/19/17 23:18 Dextrose/Water IV 250 mls/hr Q12H EVETTE Administration Dextrose/Water Confirm 07/19/17 22:48 07/19/17 23:21 Dextrose 5% In Water Administered 07/19/17 22:49 Not Given Dose 500 mls @ as directed .ROUTE .STK-MED ONE Iopamidol 150 ml 07/19/17 17:30 07/19/17 17:40 Isovue-300 (61%) IV 150 ml . DIRECTED EVETTE Administration Vancomycin HCl 2 gm 07/19/17 21:00 07/20/17 18:38 Vancomycin IV Not Given Q12H EVETTE Vancomycin HCl Confirm 07/19/17 22:39 07/19/17 23:21 Vancomycin Administered 07/19/17 22:40 Not Given Dose 2,000 mg .ROUTE .STK-MED ONE - Re-Assessments/Exams Free Text/Narrative Re-Assessment/Exam: 07/19/17 16:59 White count and electrolytes will be checked, patient will be sent back for a CT the abdomen and pelvis with IV contrast to assess for postoperative abscess. It is concerning that she is getting IV antibiotics but worsening. 07/19/17 18:45 White count was normal, CT with IV contrast shows a fluid collection near the rectus abdominis but likely seroma or hematoma. She'll be admitted for IV antibiotics over the next 48 hours. Departure - Departure Time of Disposition: 20:40 Disposition: Admitted As Inpatient 68 Condition: Fair Clinical Impression: Seroma after procedure Cellulitis Qualifiers: Site of cellulitis: trunk Site of cellulitis of trunk: abdominal wall Qualified Code(s): L03.311 - Cellulitis of abdominal wall - Discharge Information
[2017-07-19] MEDS ORDERED: Sodium Chloride 0.9% 10 ML Syringe FLUSH PRN (17:17)
[2017-07-19] MEDS ORDERED: Iopamidol 612 MG/ML 150 ML Bottle IV SCH (17:30)
[2017-07-19] MEDS ORDERED: Sodium Chloride 0.9% 80 ML IV SCH (17:30)
[2017-07-19] MEDS ORDERED: LORazepam 2 MG/ML SDV IV PRN (20:51)
[2017-07-19] MEDS ORDERED: Ondansetron 4 MG/2 ML SDV IV PRN (20:51)
[2017-07-19] MEDS ORDERED: oxyCODONE 5 MG Tab PO PRN (20:51)
[2017-07-19] MEDS ORDERED: Morphine 2 MG/ML Syringe IVPUSH PRN (20:51)
[2017-07-19] MEDS ORDERED: Ondansetron 4 MG Tab.DIS PO PRN (20:51)
[2017-07-19] MEDS ORDERED: Albuterol 0.083% 2.5 MG/3 ML Neb Soln NEB PRN (20:51)
[2017-07-19] MEDS ORDERED: Zolpidem 5 MG Tab PO PRN (20:51)
[2017-07-19] MEDS ORDERED: Nicotine Polacrilex 2 MG Gum CHEW PRN (20:51)
[2017-07-19] MEDS ORDERED: Vancomycin 1 GM SDV IV SCH (21:00)
[2017-07-19] MEDS: Sertraline 50 MG Tab PO SCH (21:16)
[2017-07-19] MEDS: Piperacillin/Tazobactam 3.375 GM in Sodium Chloride 0.9% 50 ML IV SCH (21:17)
[2017-07-19] MEDS: Docusate Sodium 100 MG Cap PO SCH (22:12)
[2017-07-19] MEDS ORDERED: Vancomycin 1,000 MG SDV ONE (22:39)
[2017-07-19] MEDS ORDERED: Dextrose 5% in Water 500 ML ONE (22:48)
--- NOTE | 2017-07-19 22:59 | PCM.HP ---
H&P History of Present Illness - General Admit Problem/Dx: Admission Diagnosis/Problem Admission Diagnosis/Problem Cellulitis of abdominal wall Source of Information: Patient, Family (Grandmother, Sibling, Cousin) History Limitations: Reports: No Limitations - History of Present Illness Initial Comments - Free Text/Narative: 22-year-old female who had a 9 days ago has been developing increased redness and tenderness through the incision over the last 5 days. Despite getting IV antibiotics in the clinic yesterday the provider feels it is getting worse, it looks worse. Patient is not running a fever but she's been feeling chilled over the last 2 days. The clinic sent her over to the emergency room. Surgery had not been called. Patient has no dysuria or shortness of breath. There is still a GP drain present on the right abdomen, it feels more tender and the patient thinks it's more erythematous but the drainage is unchanged. Onset: Gradual,Severity: Moderate,Associated Symptoms: Reports: Fever/Chills, Incision drainage, abdominal pain White count and electrolytes will be checked, patient will be sent back for a CT the abdomen and pelvis with IV contrast to assess for postoperative abscess. It is concerning that she is getting IV antibiotics but worsening. White count was normal, CT with IV contrast shows a fluid collection near the rectus abdominis but likely seroma or hematoma. She'll be admitted for IV antibiotics over the next 48 hours. Onset of Symptoms: Reports: Gradual Duration of Symptoms: Reports: Day(s): (5) Location: Reports: Abdomen Quality: Reports: Ache, Burning Severity: Moderate Improves with: Reports: None Worsens with: Reports: None Context: Reports: Other ( on 07/15/2017) Associated Symptoms: Reports: Fever/Chills Abdominal Pain Score (Numeric/FACES): 5 - Related Data Allergies/Adverse Reactions: Allergies Allergy/AdvReac Type Severity Reaction Status Date / Time No Known Allergies Allergy Verified 03/29/17 06:05 Home Medications: Home Meds Sertraline [Zoloft] 100 mg PO BEDTIME 07/10/17 [History] Acetaminophen/oxyCODONE [Percocet 325-5 MG] 1 - 2 tab PO Q4H PRN #30 tablet 12/23 [Rx] Docusate Sodium [Colace] 100 mg PO BID #100 cap 07/13/17 [Rx] Ibuprofen [IJD: Ibuprofen] 600 mg PO Q6H PRN #100 tablet 07/13/17 [Rx] Clindamycin HCl [Cleocin] 300 mg PO TID 07/19/17 [History] Past Medical History HEENT History: Reports: Impaired 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: Neurological History: Reports: Concussion Psychiatric History: Reports: Anxiety, Depression, Suicide Attempt Endocrine/Metabolic History: Reports: Diabetes, Gestational, Obesity/BMI 30+ - Infectious Disease History Infectious Disease History: Reports: None - Past Surgical History Female Surgical History: Reports: Section Social & Family History - Family History Family Medical History: Noncontributory - Tobacco Use Smoking Status *Q: Current Every Day Smoker Years of Tobacco use: 5 Packs/Tins Daily: 0.3 Used Tobacco, but Quit: No Month/Year Tobacco Last Used: July Second Hand Smoke Exposure: Yes - Caffeine Use Caffeine Use: Reports: Coffee, Tea - Recreational Drug Use Recreational Drug Use: No H&P Review of Systems - Review of Systems: Review Of Systems: See Below General: Reports: Chills, Malaise HEENT: Reports: No Symptoms Pulmonary: Reports: No Symptoms Cardiovascular: Reports: No Symptoms Gastrointestinal: Reports: Abdominal Pain, Other ( 07/15/17) Genitourinary: Reports: No Symptoms Musculoskeletal: Reports: No Symptoms Skin: Reports: Bruising, Erythema, Other (cellulitis of incision) Psychiatric: Reports: Depression Neurological: Reports: No Symptoms Hematologic/Lymphatic: Reports: No Symptoms Immunologic: Reports: No Symptoms Exam - Exam Exam: See Below - Vital Signs Vital Signs: Last Vital Signs Temp 37.1 C 07/19/17 20:45 Pulse 95 07/19/17 20:45 Resp 16 07/19/17 20:45 BP 187/106 H 07/19/17 20:45 Pulse Ox 98 07/19/17 20:45 Weight: 130.2 kg - Exam General: Alert, Oriented, Cooperative, Mild Distress HEENT: PERRLA, Hearing Intact, Mucosa Moist & Dobson, Nares Patent, Normal Nasal Septum, Posterior Pharynx Clear, Conjunctiva Clear, EOMI, EACs Clear, TMs Clear Neck: Supple, Trachea Midline, 2 Lungs: Clear to Auscultation, Normal Respiratory Effort Cardiovascular: Regular Rate, Regular Rhythm GI/Abdominal Exam: Normal Bowel Sounds, Tender, Other (Other (Patient has a fairly large incision over the lower abdomen pannus closed by vicky. There is a significant amount of erythema extending from the incision. There is also firmness under the erythema and tenderness. The TOSIN drain site has some erythema around the exit site.)) (Female) Exam: Deferred Rectal (Female) Exam: Deferred Back Exam: Normal Inspection, Full Range of Motion, NT Extremities: Normal Inspection, Normal Range of Motion, Non-Tender, No Pedal Edema, Normal Capillary Refill Skin: Ecchymosis, Incision, Other (Other (Patient has a fairly large incision over the lower abdomen pannus closed by vicky. There is a significant amount of erythema extending from the incision. There is also firmness under the erythema and tenderness. The TOSIN drain site has some erythema around the exit site.)) Neurological: Cranial Nerves Intact, Reflexes Equal Bilateral, Strength Equal Bilateral, Normal Gait, Normal Speech, Normal Tone Neuro Extensive - Mental Status: Alert, Oriented x3, Normal Mood/Affect, Normal Cognition, Memory Intact Neuro Extensive - Motor, Sensory, Reflexes: CN II-XII Intact, Normal Gait, Normal Reflexes Psychiatric: Alert, Normal Affect, Normal Mood, Other (tearful and sad due to being in hospital for complication with incision and 9 day old .) - Patient Data Lab Results Last 24 hrs: Laboratory Results - last 24 hr 07/19/17 Range/Units 20:50 Lactic Acid 1.3 (0.4-2.0) mmol/L Result Diagrams: 07/19/17 16:50 07/19/17 16:50 *Q Meaningful Use (ADM) - VTE *Q VTE Criteria *Q: - Stroke *Q Stroke Criteria *Q: - AMI *Q AMI Criteria *Q: - Problem List (1) Tobacco use SNOMED Code(s): 999542221 ICD Code: Z72.0 - TOBACCO USE Status: Acute Priority: Medium Current Visit: Yes (2) Cellulitis SNOMED Code(s): 685556499 ICD Code: L03.90 - CELLULITIS, UNSPECIFIED Status: Acute Priority: High Current Visit: Yes Qualifiers: Site of cellulitis: trunk Site of cellulitis of trunk: abdominal wall Qualified Code(s): L03.311 - Cellulitis of abdominal wall (3) started SNOMED Code(s): 878641974 ICD Code: [id number] - Status: Acute Current Visit: Yes Problem List Initiated/Reviewed/Updated: Yes Orders Last 24hrs: Active Orders 24 hr Category Date Time Status Patient Status [ADT] Routine ADT 07/19/17 20:51 Active Ambulate [RC] QID Care 07/19/17 20:51 Active Intake and Output [RC] QSHIFT Care 07/19/17 20:51 Active Notify Provider Consults [RC] .PRN Care 07/19/17 20:51 Active Notify Provider Vital Signs [RC] .PRN Care 07/19/17 20:51 Active Oxygen Therapy [RC] .PRN Care 07/19/17 20:51 Active Pulse Oximetry [RC] .PRN Care 07/19/17 20:51 Active RT Aerosol Therapy [RC] ASDIRECTED Care 07/19/17 20:51 Active Up ad Iesha [RC] ASDIRECTED Care 07/19/17 20:51 Active Vital Signs [RC] Q4H Care 07/19/17 20:51 Active Consult to In School Suspension Aide [CONS] Routine Cons 07/19/17 20:51 Active Consult to Physician [CONS] Routine Cons 07/19/17 20:51 Ordered Consult to Spiritual Care [CONS] Routine Cons 07/19/17 20:51 Active Regular Diet [DIET] Diet 07/19/17 Dinner Active BASIC METABOLIC PANEL,BMP [CHEM] AM Lab 07/20/17 05:11 Ordered CBC WITH AUTO DIFF [HEME] AM Lab 07/20/17 05:11 Ordered Acetaminophen [Tylenol] Med 07/19/17 20:51 Active 650 mg PO Q4H PRN Albuterol [Proventil Neb Soln] Med 07/19/17 20:51 Active 2.5 mg NEB Q4H PRN Docusate Sodium [Colace] Med 07/19/17 21:00 Active 100 mg PO BID LORazepam [Ativan] Med 07/19/17 20:51 Active 1 mg IV Q6H PRN Morphine Med 07/19/17 20:51 Active 2 mg IVPUSH Q2H PRN Nicotine Polacrilex [Nicorelief] Med 07/19/17 20:51 Active 2 mg CHEW Q2H PRN Nicotine [Habitrol] Med 07/20/17 09:00 Active 14 mg TRDERM DAILY Ondansetron [Zofran ODT] Med 07/19/17 20:51 Active 4 mg PO Q6H PRN Ondansetron [Zofran] Med 07/19/17 20:51 Active 4 mg IV Q4H PRN Piperacillin/Tazobactam [Zosyn] 3.375 gm Med 07/19/17 21:00 Active Sodium Chloride 0.9% [Normal Saline] 50 ml IV Q6H Sertraline [Zoloft] Med 07/19/17 21:00 Active 100 mg PO BEDTIME Sodium Chloride 0.9% [Normal Saline] 1,000 ml Med 07/19/17 20:51 Active IV ASDIRECTED Vancomycin Med 07/19/17 21:00 Pending 2 gm IV Q12H Vancomycin 2,000 mg Med 07/19/17 22:00 Active Dextrose 5% in Water 500 ml IV Q12H Zolpidem [Ambien] Med 07/19/17 20:51 Active 5 mg PO BEDTIME PRN oxyCODONE Med 07/19/17 20:51 Active 5 mg PO Q4H PRN Breast Pump [WOMSER] Urgent Oth 07/19/17 20:51 Ordered Heat Therapy [OM.PC] Routine Oth 07/19/17 20:51 Ordered Sequential Compression Device [OM.PC] Per Unit Routine Oth 07/19/17 20:51 Ordered Resuscitation Status Routine Resus Stat 07/19/17 20:13 Ordered Medication Orders Acetaminophen (Tylenol) 650 mg PO Q4H PRN PRN Reason: Pain (Mild 1-3)/fever Albuterol (Proventil Neb Soln) 2.5 mg NEB Q4H PRN PRN Reason: Shortness Of Breath/wheezing Docusate Sodium (Colace) 100 mg PO BID [facility] Last Admin: 07/19/17 22:12 Dose: Not Given Sodium Chloride (Normal Saline) 80 mls @ 3 mls/sec IV ASDIRECTED [facility] Last Admin: 07/19/17 17:40 Dose: 3 mls/sec Piperacillin Sod/Tazobactam (Sod 3.375 gm/ Sodium Chloride) 50 mls @ 100 mls/ hr IV Q6H [facility] Last Admin: 07/19/17 21:17 Dose: 100 mls/hr Sodium Chloride (Normal Saline) 1,000 mls @ 125 mls/hr IV ASDIRECTED [facility] Vancomycin HCl 2,000 mg/ (Dextrose/Water) 500 mls @ 250 mls/hr IV Q12H [facility] Iopamidol (Isovue-300 (61%)) 150 ml IV . DIRECTED [facility] Last Admin: 07/19/17 17:40 Dose: 150 ml Lorazepam (Ativan) 1 mg IV Q6H PRN PRN Reason: Nausea/Vomiting Morphine Sulfate (Morphine) 2 mg IVPUSH Q2H PRN PRN Reason: Pain (severe 7-10) Nicotine (Habitrol) 14 mg TRDERM DAILY [facility] Nicotine Polacrilex (Nicorelief) 2 mg CHEW Q2H PRN PRN Reason: Withdrawal Symptoms Ondansetron HCl (Zofran Odt) 4 mg PO Q6H PRN PRN Reason: Nausea able to take PO Ondansetron HCl (Zofran) 4 mg IV Q4H PRN PRN Reason: Nausea/Vomiting Oxycodone HCl (Oxycodone) 5 mg PO Q4H PRN PRN Reason: Pain (moderate 4-6) Sertraline HCl (Zoloft) 100 mg PO BEDTIME [facility] Last Admin: 07/19/17 21:16 Dose: 100 mg Sodium Chloride (Saline Flush) 10 ml FLUSH ASDIRECTED PRN PRN Reason: Keep Vein Open Last Admin: 07/19/17 17:39 Dose: 10 ml Vancomycin HCl (Vancomycin) 2 gm IV Q12H [facility] Zolpidem Tartrate (Ambien) 5 mg PO BEDTIME PRN PRN Reason: Sleep Assessment/Plan Comment:: ASSESSMENT / PLAN 22-year-old female who had a 9 days ago has been developing increased redness and tenderness through the incision over the last 5 days. Despite getting IV antibiotics in the clinic yesterday the provider feels it is getting worse, it looks worse. Patient is not running a fever but she's been feeling chilled over the last 2 days. The clinic sent her over to the emergency room. Surgery had not been called. Patient has no dysuria or shortness of breath. There is still a GP drain present on the right abdomen, it feels more tender and the patient thinks it's more erythematous but the drainage is unchanged. Onset: Gradual,Severity: Moderate,Associated Symptoms: Reports: Fever/Chills, Incision drainage, abdominal pain White count and electrolytes will be checked, patient will be sent back for a CT the abdomen and pelvis with IV contrast to assess for postoperative abscess. It is concerning that she is getting IV antibiotics but worsening. White count was normal, CT with IV contrast shows a fluid collection near the rectus abdominis but likely seroma or hematoma. She'll be admitted for IV antibiotics over the next 48 hours. Admit to [address] [place] [address] Cellulitis -Admit to [address] [place] [address] for further monitoring -IV Fluids for rehydration NS at 125 mL per hour -IV Antibiotic: Vacomycin 2 gram IV every 12 hours -IV Antibiotic: Zoysn 3.375 gm IV every 6 hours -pain medication ordered prn -monitor TOSIN drain every shift -consult to surgery -Advise to notify nurses of any abdominal pain or other symptoms -blood cultures x2 pending, wound culture; preliminary gram neg gram pos -And a.m. labs: CBC, BMP, lactic acid -consults to nurse -breast pump Tobacco use -nicotine gum -nicotine patch Maintenance issues -Orders home meds: ordered -Nutrition: regular diet -Mendosa catheter not indicated at this time -DVT: SCD, ambulate -PPI: IV Protonix 40mg daily -consult OT for discharge planning -consult PT for strengthening. -consult Spiritual CODE STATUS: FULL CODE Admission status: Admit to [address] [place] [address] Admission justification. This patient will be admitted for inpatient services and is medically appropriate meeting medical necessity for inpatient admission as outlined in my documentation. I reasonably expect the patient will require inpatient services that span. Time over 2 midnights. I reasonably expect this patient to be discharged or transferred within 96 hours after admission to the critical access hospital. Disposition: home Primary care provider: Dr. Troncoso Hospitalist: Dr. Sebastian
[2017-07-19] MEDS: Sodium Chloride 0.9% 1,000 ML IV SCH (23:19)
[2017-07-19] MEDS: Acetaminophen 325 MG Tab PO PRN (23:19)
[2017-07-20] MEDS: Piperacillin/Tazobactam 3.375 GM in Sodium Chloride 0.9% 50 ML IV SCH (02:52)
[2017-07-20] MEDS: Sodium Chloride 0.9% 1,000 ML IV SCH (07:57)
[2017-07-20] MEDS: Nicotine 14 MG/24 Hr Patch TRDERM SCH (08:44)
[2017-07-20] MEDS: Docusate Sodium 100 MG Cap PO SCH ×2 (08:44→20:37)
[2017-07-20] MEDS: Piperacillin/Tazobactam/Dext 3.375 GM in Premix Bag 1 BAG IV SCH ×3 (08:45→20:30)
--- NOTE | 2017-07-20 10:19 | PCM.PN ---
- General Info Date of Service: 07/20/17 Functional Status: Reports: Pain Controlled, Tolerating Diet - Review of Systems General: Denies: Fever Gastrointestinal: Reports: Abdominal Pain Systems Review Comment:: No acute events overnight. Abdominal pain is minimal and well-controlled at this time. She has not had any fevers. Cellulitis appears to be improving with the redness receding inside of the marked area. No nausea or vomiting. Cultures pending but Gram stain did show gram-positive cocci. - Patient Data Vitals - Most Recent: Last Vital Signs Temp 36.6 C 07/20/17 07:59 Pulse 77 07/20/17 07:59 Resp 16 07/20/17 07:59 BP 134/76 07/20/17 07:59 Pulse Ox 97 07/20/17 07:59 Weight - Most Recent: 130.2 kg I&O - Last 24 Hours: Intake & Output 07/19/17 07/20/17 07/20/17 22:59 06:59 14:59 Intake Total 50 2039 50 Output Total 10 Balance 50 2028 50 Lab Results Last 24 Hours: Laboratory Results - last 24 hr 07/19/17 07/20/17 07/20/17 Range/Units 20:50 05:00 05:00 WBC 8.0 (4.5-11.0) K/uL RBC 3.91 (3.30-5.50) M/uL Hgb 11.3 L (12.0-15.0) g/dL Hct 34.0 L (36.0-48.0) % MCV 87 (80-98) fL MCH 29 (27-31) pg MCHC 33 (32-36) % Plt Count 379 (150-400) K/uL Neut % (Auto) 60 (36-66) % Lymph % (Auto) 28 (24-44) % [place] % (Auto) 10 H (2-6) % Eos % (Auto) 2 (2-4) % Baso % (Auto) 0 (0-1) % Sodium 142 (140-148) mmol/L Potassium 3.8 (3.6-5.2) mmol/L Chloride 106 (100-108) mmol/L Carbon Dioxide 26 (21-32) mmol/L Anion Gap 10.4 (5.0-14.0) mmol/L BUN 8 (7-18) mg/dL Creatinine 0.8 (0.6-1.0) mg/dL Est Cr Clr Drug Dosing 84.65 mL/min Estimated GFR (MDRD) > 60 (>60) Glucose 99 (74-106) mg/dL Lactic Acid 1.3 (0.4-2.0) mmol/L Calcium 8.5 (8.5-10.1) mg/dL Med Orders - Current: Current Medications Acetaminophen (Tylenol) 650 mg PO Q4H PRN PRN Reason: Pain (Mild 1-3)/fever Last Admin: 07/19/17 23:19 Dose: 650 mg Albuterol (Proventil Neb Soln) 2.5 mg NEB Q4H PRN PRN Reason: Shortness Of Breath/wheezing Docusate Sodium (Colace) 100 mg PO BID [facility] Last Admin: 07/20/17 08:44 Dose: 100 mg Sodium Chloride (Normal Saline) 1,000 mls @ 125 mls/hr IV ASDIRECTED [facility] Last Admin: 07/20/17 07:57 Dose: 125 mls/hr Piperacillin/Tazobactam/ (Dextrose 3.375 gm/ Premix) 50 mls @ 100 mls/hr IV Q6H [facility] Last Admin: 07/20/17 08:45 Dose: 100 mls/hr Vancomycin HCl 2 gm/ Sodium (Chloride) 500 mls @ 250 mls/hr IV Q12H [facility] Lorazepam (Ativan) 1 mg IV Q6H PRN PRN Reason: Nausea/Vomiting Morphine Sulfate (Morphine) 2 mg IVPUSH Q2H PRN PRN Reason: Pain (severe 7-10) Nicotine (Habitrol) 14 mg TRDERM DAILY [facility] Last Admin: 07/20/17 08:44 Dose: 14 mg Nicotine Polacrilex (Nicorelief) 2 mg CHEW Q2H PRN PRN Reason: Withdrawal Symptoms Ondansetron HCl (Zofran Odt) 4 mg PO Q6H PRN PRN Reason: Nausea able to take PO Ondansetron HCl (Zofran) 4 mg IV Q4H PRN PRN Reason: Nausea/Vomiting Oxycodone HCl (Oxycodone) 5 mg PO Q4H PRN PRN Reason: Pain (moderate 4-6) Sertraline HCl (Zoloft) 100 mg PO BEDTIME [facility] Last Admin: 07/19/17 21:16 Dose: 100 mg Sodium Chloride (Saline Flush) 10 ml FLUSH ASDIRECTED PRN PRN Reason: Keep Vein Open Last Admin: 07/19/17 17:39 Dose: 10 ml Zolpidem Tartrate (Ambien) 5 mg PO BEDTIME PRN PRN Reason: Sleep Discontinued Medications Sodium Chloride (Normal Saline) 80 mls @ 3 mls/sec IV ASDIRECTED [facility] Last Admin: 07/19/17 17:40 Dose: 3 mls/sec Piperacillin Sod/Tazobactam (Sod 3.375 gm/ Sodium Chloride) 50 mls @ 100 mls/ hr IV Q6H [facility] Last Admin: 07/20/17 02:52 Dose: 100 mls/hr Vancomycin HCl 2,000 mg/ (Dextrose/Water) 500 mls @ 250 mls/hr IV Q12H [facility] Last Admin: 07/19/17 23:18 Dose: 250 mls/hr Dextrose/Water (Dextrose 5% In Water) Confirm Administered Dose 500 mls @ as directed .ROUTE .STK-MED ONE Stop: 07/19/17 22:49 Last Admin: 07/19/17 23:21 Dose: Not Given Iopamidol (Isovue-300 (61%)) 150 ml IV . DIRECTED [facility] Last Admin: 07/19/17 17:40 Dose: 150 ml Vancomycin HCl (Vancomycin) 2 gm IV Q12H [facility] Vancomycin HCl (Vancomycin) Confirm Administered Dose 2,000 mg .ROUTE .STK-MED ONE Stop: 07/19/17 22:40 Last Admin: 07/19/17 23:21 Dose: Not Given - Exam Quality Assessment: No: Supplemental Oxygen General: Alert, Oriented, Cooperative, No Acute Distress Neck: Supple Lungs: Normal Respiratory Effort GI/Abdominal Exam: No Distention Skin: Warm, Dry, Rash (erythema on the abdomen is within the marked boundaries and has receded slightly) Wound/Incisions: Drainage (middle/left of lower abdominal incision) Psy/Mental Status: Alert, Normal Affect - Problem List Review Problem List Initiated/Reviewed/Updated: Yes - Plan Plan:: ASSESSMENT / PLAN Cellulitis of abdominal wall - acute infection of the lower abdominal wall surrounding the incision. Cellulitis appears to be improving. Cultures are pending but Gram stain did show gram-positive cocci. Cultures obtained from one week ago revealed enterococcus and staph epidermidis. Both were sensitive to vancomycin. -Saline lock IV fluids -IV Antibiotic: Vacomycin 2 gram IV every 12 hours -IV Antibiotic: Zoysn 3.375 gm IV every 6 hours -pain medication ordered prn -monitor TOSIN drain every shift -Follow-up cultures -consults to nurse -breast pump Tobacco dependence -nicotine gum -nicotine patch Maintenance issues -Orders home meds: ordered -Nutrition: regular diet -Mendosa catheter not indicated at this time -DVT: SCD, ambulate -consult OT for discharge planning -consult PT for strengthening. Disposition: home in a day or 2 Kavin Sebastian M.D.
[2017-07-20] MEDS: Vancomycin 2 GM in Sodium Chloride 0.9% 500 ML IV SCH ×2 (10:58→22:13)
[2017-07-20] MEDS: Acetaminophen 325 MG Tab PO PRN (11:47)
[2017-07-20] MEDS: diphenhydrAMINE 25 MG Cap PO PRN ×2 (13:39→22:16)
--- NOTE | 2017-07-20 16:43 | PCM.PN ---
- General Info Date of Service: 07/20/17 Admission Dx/Problem (Free Text): Cellulitis Subjective Update: This 22 year old white female is s/p an emergency section about ten days ago. She was admitted yesterday with cellulitis which was getting worse despite outpatient antibiotic treatment. There is a TOSIN drain in place in her subcutaneous tissue. A CT scan yesterday showed a seroma in the subcutaneous tissue, no evidence of abscess. The plan is if she does not get better with IV antibiotics an ultrasound guided aspiration of the fluid will be made tomorrow. Functional Status: Reports: Pain Controlled, Tolerating Diet, Ambulating, Urinating - Review of Systems General: Reports: No Symptoms HEENT: Reports: No Symptoms Pulmonary: Reports: No Symptoms Cardiovascular: Reports: No Symptoms Gastrointestinal: Reports: No Symptoms Genitourinary: Reports: No Symptoms Musculoskeletal: Reports: No Symptoms Skin: Reports: No Symptoms Neurological: Reports: No Symptoms Psychiatric: Reports: No Symptoms - Patient Data Vitals - Most Recent: Last Vital Signs Temp 97.7 F 07/20/17 15:04 Pulse 88 07/20/17 15:04 Resp 16 07/20/17 15:04 BP 146/94 H 07/20/17 15:04 Pulse Ox 98 07/20/17 15:04 Weight - Most Recent: 287 lb 0.67 oz I&O - Last 24 Hours: Intake & Output 07/20/17 07/20/17 07/20/17 06:59 14:59 22:59 Intake Total 2038 550 Output Total 10 Balance 2028 550 Lab Results Last 24 Hours: Laboratory Results - last 24 hr 07/19/17 07/20/17 07/20/17 Range/Units 20:50 05:00 05:00 WBC 8.0 (4.5-11.0) K/uL RBC 3.91 (3.30-5.50) M/uL Hgb 11.3 L (12.0-15.0) g/dL Hct 34.0 L (36.0-48.0) % MCV 87 (80-98) fL MCH 29 (27-31) pg MCHC 33 (32-36) % Plt Count 379 (150-400) K/uL Neut % (Auto) 60 (36-66) % Lymph % (Auto) 28 (24-44) % Loup % (Auto) 10 H (2-6) % Eos % (Auto) 2 (2-4) % Baso % (Auto) 0 (0-1) % Sodium 142 (140-148) mmol/L Potassium 3.8 (3.6-5.2) mmol/L Chloride 106 (100-108) mmol/L Carbon Dioxide 26 (21-32) mmol/L Anion Gap 10.4 (5.0-14.0) mmol/L BUN 8 (7-18) mg/dL Creatinine 0.8 (0.6-1.0) mg/dL Est Cr Clr Drug Dosing 84.65 mL/min Estimated GFR (MDRD) > 60 (>60) Glucose 99 (74-106) mg/dL Lactic Acid 1.3 (0.4-2.0) mmol/L Calcium 8.5 (8.5-10.1) mg/dL Med Orders - Current: Current Medications Acetaminophen (Tylenol) 650 mg PO Q4H PRN PRN Reason: Pain (Mild 1-3)/fever Last Admin: 07/20/17 11:47 Dose: 650 mg Albuterol (Proventil Neb Soln) 2.5 mg NEB Q4H PRN PRN Reason: Shortness Of Breath/wheezing Diphenhydramine HCl (Benadryl) 25 mg PO Q4H PRN PRN Reason: Itching Last Admin: 07/20/17 13:39 Dose: 25 mg Docusate Sodium (Colace) 100 mg PO BID [facility] Last Admin: 07/20/17 08:44 Dose: 100 mg Piperacillin/Tazobactam/ (Dextrose 3.375 gm/ Premix) 50 mls @ 100 mls/hr IV Q6H [facility] Last Admin: 07/20/17 15:25 Dose: 100 mls/hr Vancomycin HCl 2 gm/ Sodium (Chloride) 500 mls @ 167 mls/hr IV Q12H [facility] Last Admin: 07/20/17 10:58 Dose: 250 mls/hr Lorazepam (Ativan) 1 mg IV Q6H PRN PRN Reason: Nausea/Vomiting Morphine Sulfate (Morphine) 2 mg IVPUSH Q2H PRN PRN Reason: Pain (severe 7-10) Nicotine (Habitrol) 14 mg TRDERM DAILY [facility] Last Admin: 07/20/17 08:44 Dose: 14 mg Nicotine Polacrilex (Nicorelief) 2 mg CHEW Q2H PRN PRN Reason: Withdrawal Symptoms Ondansetron HCl (Zofran Odt) 4 mg PO Q6H PRN PRN Reason: Nausea able to take PO Ondansetron HCl (Zofran) 4 mg IV Q4H PRN PRN Reason: Nausea/Vomiting Oxycodone HCl (Oxycodone) 5 mg PO Q4H PRN PRN Reason: Pain (moderate 4-6) Sertraline HCl (Zoloft) 100 mg PO BEDTIME [facility] Last Admin: 07/19/17 21:16 Dose: 100 mg Sodium Chloride (Saline Flush) 10 ml FLUSH ASDIRECTED PRN PRN Reason: Keep Vein Open Last Admin: 07/19/17 17:39 Dose: 10 ml Zolpidem Tartrate (Ambien) 5 mg PO BEDTIME PRN PRN Reason: Sleep Discontinued Medications Sodium Chloride (Normal Saline) 80 mls @ 3 mls/sec IV ASDIRECTED [facility] Last Admin: 07/19/17 17:40 Dose: 3 mls/sec Piperacillin Sod/Tazobactam (Sod 3.375 gm/ Sodium Chloride) 50 mls @ 100 mls/ hr IV Q6H [facility] Last Admin: 07/20/17 02:52 Dose: 100 mls/hr Sodium Chloride (Normal Saline) 1,000 mls @ 125 mls/hr IV ASDIRECTED [facility] Last Admin: 07/20/17 07:57 Dose: 125 mls/hr Vancomycin HCl 2,000 mg/ (Dextrose/Water) 500 mls @ 250 mls/hr IV Q12H [facility] Last Admin: 07/19/17 23:18 Dose: 250 mls/hr Dextrose/Water (Dextrose 5% In Water) Confirm Administered Dose 500 mls @ as directed .ROUTE .STK-MED ONE Stop: 07/19/17 22:49 Last Admin: 07/19/17 23:21 Dose: Not Given Iopamidol (Isovue-300 (61%)) 150 ml IV . DIRECTED [facility] Last Admin: 07/19/17 17:40 Dose: 150 ml Vancomycin HCl (Vancomycin) 2 gm IV Q12H [facility] Vancomycin HCl (Vancomycin) Confirm Administered Dose 2,000 mg .ROUTE .STK-MED ONE Stop: 07/19/17 22:40 Last Admin: 07/19/17 23:21 Dose: Not Given - Exam Skin: Warm, Dry, Intact, Other (Her cellulitis appears improved. ) - Problem List & Annotations (1) Cellulitis SNOMED Code(s): 010105828 Code(s): L03.90 - CELLULITIS, UNSPECIFIED Status: Acute Priority: High Current Visit: Yes Qualifiers: Site of cellulitis: trunk Site of cellulitis of trunk: abdominal wall Qualified Code(s): L03.311 - Cellulitis of abdominal wall - Problem List Review Problem List Initiated/Reviewed/Updated: Yes - Assessment Assessment:: She is afebrile with a normal WBC. Her cellulitis appears to be improving. - Plan Plan:: ASSESSMENT / PLAN Cellulitis of abdominal wall - acute infection of the lower abdominal wall surrounding the incision. Cellulitis appears to be improving. Cultures are pending but Gram stain did show gram-positive cocci. Cultures obtained from one week ago revealed enterococcus and staph epidermidis. Both were sensitive to vancomycin. -Saline lock IV fluids -IV Antibiotic: Vacomycin 2 gram IV every 12 hours -IV Antibiotic: Zoysn 3.375 gm IV every 6 hours -pain medication ordered prn -monitor TOSIN drain every shift -Follow-up cultures -consults to nurse -breast pump Tobacco dependence -nicotine gum -nicotine patch Maintenance issues -Orders home meds: ordered -Nutrition: regular diet -Mendosa catheter not indicated at this time -DVT: SCD, ambulate -consult OT for discharge planning -consult PT for strengthening. Disposition: home in a day or 2 Kavin Alvarado.
[2017-07-20] MEDS: Sertraline 50 MG Tab PO SCH (20:29)
[2017-07-20] MEDS ORDERED: Ibuprofen 600 MG Tab PO PRN (21:54)
--- NOTE | 2017-07-20 22:22 | PCM.SN ---
- Free Text/Narrative Note: Time 21:55 call from [address] [place] [address], Ms. Mcgrath is requesting Motrin for abdominal cramps, denies any other concerns O: pelvic cramping from recent delivery on 07-15-17 A: abdominal cramps P: Motrin 600mg po every 6 hours prn cramps/pain. continue present plan of care.
[2017-07-21] MEDS: Piperacillin/Tazobactam/Dext 3.375 GM in Premix Bag 1 BAG IV SCH ×2 (02:26→08:41)
[2017-07-21] MEDS: Docusate Sodium 100 MG Cap PO SCH (08:41)
[2017-07-21] MEDS: Vancomycin 2 GM in Sodium Chloride 0.9% 500 ML IV SCH (10:01)
[2017-07-21] MEDS: Nicotine 14 MG/24 Hr Patch TRDERM SCH (10:06)
[2017-07-21] MEDS: diphenhydrAMINE 25 MG Cap PO PRN (10:23)
--- NOTE | 2017-07-21 12:32 | PCM.DCSUM1 ---
Discharge Summary - Hospital Course Brief History: 22-year-old female with recent delivery who presented with persistent redness and swelling of the anterior abdominal wall despite outpatient antibiotic therapy. She was admitted for IV antibiotics to manage abdominal wall cellulitis. - Discharge Data Discharge Date: 07/21/17 Discharge Disposition: Home, Self-Care 01 Condition: Good - Discharge Diagnosis/Problem(s) (1) Cellulitis SNOMED Code(s): 941521825 ICD Code: L03.90 - CELLULITIS, UNSPECIFIED Status: Acute Priority: High Current Visit: Yes Qualifiers: Site of cellulitis: trunk Site of cellulitis of trunk: abdominal wall Qualified Code(s): L03.311 - Cellulitis of abdominal wall (2) Status post SNOMED Code(s): 903030385 ICD Code: Z98.891 - HISTORY OF UTERINE SCAR FROM PREVIOUS SURGERY Status: Acute Current Visit: No - Patient Summary/Data Consults: Consultations 07/19/17 20:51 Consult to [employer] [CONS] Routine Comment: Physician Instructions: Consult to Physician [CONS] Routine Consulting Provider: Oscar Nolen Call Completed to Consulting Physician: elin Reason for Consult: , cellulitis Date Notified: 07/19/17 Consult to Spiritual Care [CONS] Routine Spiritual Care Reason for Consult: New Diagnosis Special Instructions: in hospital with wound infection, baby at home , 9 days old. prayers for fast recovery Labs Pending at D/C: Final results of wound culture and culture of fluid from the TOSIN drain - both of these are growing 2 different gram-positive cocci at the time of discharge Hospital Course: Cameron presented to the emergency room for a wound recheck after the pain, swelling and redness had not improved over the previous 24 hours. She had recently been treated with doxycycline and then clindamycin as well as a dose of ceftriaxone the day before admission. Workup in the emergency room revealed a normal white count and there was no evidence for sepsis. She had obvious cellulitis on the abdominal wall with some drainage from the middle of her section incision. Prior to initiation of antibiotics she had cultures obtained from the fluid draining from her TOSIN drain as well as culture of the abdominal wall drainage. She was empirically started on vancomycin and Zosyn. She was admitted to the hospital and did receive IV fluids overnight following admission. By the morning after admission there had been some mild improvement in the redness and swelling as well as improvement in her pain. She did not have any fevers overnight following admission or during the course of her hospital stay. We continued the same antibiotics throughout the second day and second night of the hospital stay. By the morning of discharge her redness and swelling have improved significantly. She has only minimal erythema surrounding the surgical incision at this time and it is mostly around the staple sites. She does have mild drainage from the middle of her incision at this time but it is less than previous days. Her TOSIN drain is no longer draining fluid and has been removed. Her wound culture results are not final but she is growing to gram -positive cocci. I suspect that these will be the same 2 that were cultured previously and include enterococcus and staph epidermidis. She feels well and is interested in going home. She would like to be with her . I believe she is safe at this time. Antibiotic plan will be a combination of Augmentin for the enterococcus and ciprofloxacin for the staph epidermidis. I will contact her tomorrow if her final culture results suggest we need an alternative antibiotic regimen. She has minimal pain at this time and does not need additional pain pills. She will be following up in the clinic next Monday. I did encourage her to contact me over the weekend if she has difficulties or concerns. - Patient Instructions Diet: Regular Diet as Tolerated Activity: As Tolerated Driving: Do Not Drive (if taking pain pills) Showering/Bathing: May Shower, No Tub Bathing/Swimming Wound/Incision Care: Keep Operative Site/Wound Site Clean and Dry Notify Provider of: Fever, Increased Pain, Swelling and Redness, Nausea and/or Vomiting Other/Special Instructions: 1. You were in the hospital for management of cellulitis of your abdominal wall. I recommend 8 additional days of antibiotic therapy with ciprofloxacin and Augmentin. You will take both of these antibiotics twice daily in the morning and at bedtime. Your next dose is due tonight. It is safe to shower with the surgical incision. This incision may open up slightly after the desire are removed. You may need to place a towel or gauze 4 x 4's under your abdomen to help contain the mild drainage. 2. Stop taking the clindamycin and doxycycline as these antibiotics are ineffective against the bacteria we cultured from your wound. 3. I have placed a referral to [facility]. They will help ease her transition from the hospital to home. 4. Seek medical attention if you develop fever greater than 101, have severe abdominal pain, persistent vomiting, or persistent diarrhea. - Discharge Plan Prescriptions/Med Rec: Amoxicillin/Clavulanate K [Augmentin 875-125 MG] 1 tab PO BID #16 tablet Ciprofloxacin [IJD: Ciprofloxacin HCl] 500 mg PO BID #16 tab Home Medications: Home Meds Sertraline [Zoloft] 100 mg PO BEDTIME 07/10/17 [History] Acetaminophen/oxyCODONE [Percocet 325-5 MG] 1 - 2 tab PO Q4H PRN #30 tablet 12/23 [Rx] Docusate Sodium [Colace] 100 mg PO BID #100 cap 07/13/17 [Rx] Ibuprofen [IJD: Ibuprofen] 600 mg PO Q6H PRN #100 tablet 07/13/17 [Rx] Amoxicillin/Clavulanate K [Augmentin 875-125 MG] 1 tab PO BID #16 tablet [Rx] Ciprofloxacin [IJD: Ciprofloxacin HCl] 500 mg PO BID #16 tab 07/21/17 [Rx] Patient Handouts: Amoxicillin; Clavulanic Acid tablets, Cellulitis, Adult, Easy -to-Read, Ciprofloxacin tablets Referrals: Taylor Castro PA-C [Physician Angle Bender] - 07/26/17 9:00 am - Discharge Summary/Plan Comment DC Time >30 min.: No (25) - Patient Data Vitals - Most Recent: Last Vital Signs Temp 35.9 C 07/21/17 11:00 Pulse 73 07/21/17 11:00 Resp 16 07/21/17 11:00 BP 145/79 H 07/21/17 11:00 Pulse Ox 98 07/21/17 11:00 Weight - Most Recent: 130.2 kg I&O - Last 24 hours: Intake & Output 07/20/17 07/21/17 07/21/17 22:59 06:59 14:59 Intake Total 550 850 600 Output Total 20 Balance 530 850 600 Med Orders - Current: Current Medications Acetaminophen (Tylenol) 650 mg PO Q4H PRN PRN Reason: Pain (Mild 1-3)/fever Last Admin: 07/20/17 11:47 Dose: 650 mg Albuterol (Proventil Neb Soln) 2.5 mg NEB Q4H PRN PRN Reason: Shortness Of Breath/wheezing Diphenhydramine HCl (Benadryl) 25 mg PO Q4H PRN PRN Reason: Itching Last Admin: 07/21/17 10:23 Dose: 25 mg Docusate Sodium (Colace) 100 mg PO BID [facility] Last Admin: 07/21/17 08:41 Dose: 100 mg Piperacillin/Tazobactam/ (Dextrose 3.375 gm/ Premix) 50 mls @ 100 mls/hr IV Q6H [facility] Last Admin: 07/21/17 08:41 Dose: 100 mls/hr Vancomycin HCl 2 gm/ Sodium (Chloride) 500 mls @ 167 mls/hr IV Q12H [facility] Last Admin: 07/21/17 10:01 Dose: 167 mls/hr Ibuprofen (Motrin) 600 mg PO Q6H PRN PRN Reason: Pain Last Admin: 07/20/17 22:12 Dose: 600 mg Lorazepam (Ativan) 1 mg IV Q6H PRN PRN Reason: Nausea/Vomiting Morphine Sulfate (Morphine) 2 mg IVPUSH Q2H PRN PRN Reason: Pain (severe 7-10) Nicotine (Habitrol) 14 mg TRDERM DAILY [facility] Last Admin: 07/21/17 10:06 Dose: 14 mg Nicotine Polacrilex (Nicorelief) 2 mg CHEW Q2H PRN PRN Reason: Withdrawal Symptoms Ondansetron HCl (Zofran Odt) 4 mg PO Q6H PRN PRN Reason: Nausea able to take PO Ondansetron HCl (Zofran) 4 mg IV Q4H PRN PRN Reason: Nausea/Vomiting Oxycodone HCl (Oxycodone) 5 mg PO Q4H PRN PRN Reason: Pain (moderate 4-6) Sertraline HCl (Zoloft) 100 mg PO BEDTIME [facility] Last Admin: 07/20/17 20:29 Dose: 100 mg Sodium Chloride (Saline Flush) 10 ml FLUSH ASDIRECTED PRN PRN Reason: Keep Vein Open Last Admin: 07/19/17 17:39 Dose: 10 ml Zolpidem Tartrate (Ambien) 5 mg PO BEDTIME PRN PRN Reason: Sleep Discontinued Medications Sodium Chloride (Normal Saline) 80 mls @ 3 mls/sec IV ASDIRECTED [facility] Last Admin: 07/19/17 17:40 Dose: 3 mls/sec Piperacillin Sod/Tazobactam (Sod 3.375 gm/ Sodium Chloride) 50 mls @ 100 mls/ hr IV Q6H [facility] Last Admin: 07/20/17 02:52 Dose: 100 mls/hr Sodium Chloride (Normal Saline) 1,000 mls @ 125 mls/hr IV ASDIRECTED [facility] Last Admin: 07/20/17 07:57 Dose: 125 mls/hr Vancomycin HCl 2,000 mg/ (Dextrose/Water) 500 mls @ 250 mls/hr IV Q12H [facility] Last Admin: 07/19/17 23:18 Dose: 250 mls/hr Dextrose/Water (Dextrose 5% In Water) Confirm Administered Dose 500 mls @ as directed .ROUTE .STK-MED ONE Stop: 07/19/17 22:49 Last Admin: 07/19/17 23:21 Dose: Not Given Iopamidol (Isovue-300 (61%)) 150 ml IV . DIRECTED [facility] Last Admin: 07/19/17 17:40 Dose: 150 ml Vancomycin HCl (Vancomycin) 2 gm IV Q12H [facility] Last Admin: 07/20/17 18:38 Dose: Not Given Vancomycin HCl (Vancomycin) Confirm Administered Dose 2,000 mg .ROUTE .STK-MED ONE Stop: 07/19/17 22:40 Last Admin: 07/19/17 23:21 Dose: Not Given - Exam Quality Assessment: Denies: Supplemental Oxygen General: Reports: Alert, Oriented, Cooperative, No Acute Distress Lungs: Reports: Normal Respiratory Effort GI/Abdominal Exam: Soft, No Distention Wound/Incisions: Reports: Drainage (mild drainage from the middle of the lower abdominal incision. Desire are intact on both lateral portions of the wound.). Denies: Erythema Psy/Mental Status: Reports: Alert, Normal Affect *Q Meaningful Use (DIS) - VTE *Q VTE Criteria *Q: - Stroke *Q Stroke Criteria *Q: - AMI *Q AMI Criteria *Q:
--- NOTE | 2017-07-21 16:12 | PCM.PN ---
- General Info Date of Service: 07/21/17 Admission Dx/Problem (Free Text): Cellulitis Subjective Update: This 22 year old white female is s/p an emergency section about ten days ago. She was admitted yesterday with cellulitis which was getting worse despite outpatient antibiotic treatment. There is a TOSIN drain in place in her subcutaneous tissue. A CT scan yesterday showed a seroma in the subcutaneous tissue, no evidence of abscess. The plan is if she does not get better with IV antibiotics an ultrasound guided aspiration of the fluid will be made tomorrow. - Review of Systems General: Reports: No Symptoms HEENT: Reports: No Symptoms Pulmonary: Reports: No Symptoms Cardiovascular: Reports: No Symptoms Gastrointestinal: Reports: No Symptoms Genitourinary: Reports: No Symptoms Musculoskeletal: Reports: No Symptoms Skin: Reports: No Symptoms Neurological: Reports: No Symptoms Psychiatric: Reports: No Symptoms - Patient Data Vitals - Most Recent: Last Vital Signs Temp 96.7 F 07/21/17 11:00 Pulse 73 07/21/17 11:00 Resp 16 07/21/17 11:00 BP 145/79 H 07/21/17 11:00 Pulse Ox 98 07/21/17 11:00 Weight - Most Recent: 287 lb 0.67 oz I&O - Last 24 Hours: Intake & Output 07/21/17 07/21/17 07/21/17 06:59 14:59 22:59 Intake Total 850 600 Balance 850 600 Med Orders - Current: Current Medications Discontinued Medications Acetaminophen (Tylenol) 650 mg PO Q4H PRN PRN Reason: Pain (Mild 1-3)/fever Last Admin: 07/20/17 11:47 Dose: 650 mg Albuterol (Proventil Neb Soln) 2.5 mg NEB Q4H PRN PRN Reason: Shortness Of Breath/wheezing Diphenhydramine HCl (Benadryl) 25 mg PO Q4H PRN PRN Reason: Itching Last Admin: 07/21/17 10:23 Dose: 25 mg Docusate Sodium (Colace) 100 mg PO BID [facility] Last Admin: 07/21/17 08:41 Dose: 100 mg Sodium Chloride (Normal Saline) 80 mls @ 3 mls/sec IV ASDIRECTED [facility] Last Admin: 07/19/17 17:40 Dose: 3 mls/sec Piperacillin Sod/Tazobactam (Sod 3.375 gm/ Sodium Chloride) 50 mls @ 100 mls/ hr IV Q6H [facility] Last Admin: 07/20/17 02:52 Dose: 100 mls/hr Sodium Chloride (Normal Saline) 1,000 mls @ 125 mls/hr IV ASDIRECTED [facility] Last Admin: 07/20/17 07:57 Dose: 125 mls/hr Vancomycin HCl 2,000 mg/ (Dextrose/Water) 500 mls @ 250 mls/hr IV Q12H [facility] Last Admin: 07/19/17 23:18 Dose: 250 mls/hr Dextrose/Water (Dextrose 5% In Water) Confirm Administered Dose 500 mls @ as directed .ROUTE .STK-MED ONE Stop: 07/19/17 22:49 Last Admin: 07/19/17 23:21 Dose: Not Given Piperacillin/Tazobactam/ (Dextrose 3.375 gm/ Premix) 50 mls @ 100 mls/hr IV Q6H [facility] Last Admin: 07/21/17 08:41 Dose: 100 mls/hr Vancomycin HCl 2 gm/ Sodium (Chloride) 500 mls @ 167 mls/hr IV Q12H [facility] Last Admin: 07/21/17 10:01 Dose: 167 mls/hr Ibuprofen (Motrin) 600 mg PO Q6H PRN PRN Reason: Pain Last Admin: 07/20/17 22:12 Dose: 600 mg Iopamidol (Isovue-300 (61%)) 150 ml IV . DIRECTED [facility] Last Admin: 07/19/17 17:40 Dose: 150 ml Lorazepam (Ativan) 1 mg IV Q6H PRN PRN Reason: Nausea/Vomiting Morphine Sulfate (Morphine) 2 mg IVPUSH Q2H PRN PRN Reason: Pain (severe 7-10) Nicotine (Habitrol) 14 mg TRDERM DAILY [facility] Last Admin: 07/21/17 10:06 Dose: 14 mg Nicotine Polacrilex (Nicorelief) 2 mg CHEW Q2H PRN PRN Reason: Withdrawal Symptoms Ondansetron HCl (Zofran Odt) 4 mg PO Q6H PRN PRN Reason: Nausea able to take PO Ondansetron HCl (Zofran) 4 mg IV Q4H PRN PRN Reason: Nausea/Vomiting Oxycodone HCl (Oxycodone) 5 mg PO Q4H PRN PRN Reason: Pain (moderate 4-6) Sertraline HCl (Zoloft) 100 mg PO BEDTIME [facility] Last Admin: 07/20/17 20:29 Dose: 100 mg Sodium Chloride (Saline Flush) 10 ml FLUSH ASDIRECTED PRN PRN Reason: Keep Vein Open Last Admin: 07/19/17 17:39 Dose: 10 ml Vancomycin HCl (Vancomycin) 2 gm IV Q12H [facility] Last Admin: 07/20/17 18:38 Dose: Not Given Vancomycin HCl (Vancomycin) Confirm Administered Dose 2,000 mg .ROUTE .STK-MED ONE Stop: 07/19/17 22:40 Last Admin: 07/19/17 23:21 Dose: Not Given Zolpidem Tartrate (Ambien) 5 mg PO BEDTIME PRN PRN Reason: Sleep - Exam Skin: Other (Her erythema is improved. No longer tender. ) - Problem List & Annotations (1) Cellulitis SNOMED Code(s): 453809218 Code(s): L03.90 - CELLULITIS, UNSPECIFIED Status: Acute Priority: High Qualifiers: Site of cellulitis: trunk Site of cellulitis of trunk: abdominal wall Qualified Code(s): L03.311 - Cellulitis of abdominal wall - Problem List Review Problem List Initiated/Reviewed/Updated: Yes - My Orders Last 24 Hours: My Active Orders 07/21/17 11:56 Drain Removal [OM.PC] Routine [place] Sutures Removal [RC] ROUTINE - Assessment Assessment:: She is afebrile with a normal WBC. Her cellulitis appears to be improving. 07/21/2017--Improved. Cellulitis much better, no longer tender. - Plan Plan:: ASSESSMENT / PLAN Cellulitis of abdominal wall - acute infection of the lower abdominal wall surrounding the incision. Cellulitis appears to be improving. Cultures are pending but Gram stain did show gram-positive cocci. Cultures obtained from one week ago revealed enterococcus and staph epidermidis. Both were sensitive to vancomycin. -Saline lock IV fluids -IV Antibiotic: Vacomycin 2 gram IV every 12 hours -IV Antibiotic: Zoysn 3.375 gm IV every 6 hours -pain medication ordered prn -monitor TOSIN drain every shift -Follow-up cultures -consults to nurse -breast pump Tobacco dependence -nicotine gum -nicotine patch Maintenance issues -Orders home meds: ordered -Nutrition: regular diet -Mendosa catheter not indicated at this time -DVT: SCD, ambulate -consult OT for discharge planning -consult PT for strengthening. Disposition: home in a day or 2 Kavin Sebastian M.D. Follow. 07/21/2017-- D/C skin vicky and TOSIN. Discharge.
== END 2017-07-21 15:05 | disposition home or self-care (01) | DRG 603 ==
LOC: JP.ED 16:28 → JP.MS 20:11
PROVIDERS: ADMIT Internal Medicine; ATTEND Internal Medicine
DX: L03.311 Cellulitis of abdominal wall (principal); O90.2 Hematoma of obstetric wound; Z98.891 History of uterine scar from previous surgery; F17.210 Nicotine dependence, cigarettes, uncomplicated; F32.9 Major depressive disorder, single episode, unspecified; F41.9 Anxiety disorder, unspecified; Z86.32 Personal history of gestational diabetes; B95.7 Other staphylococcus as the cause of diseases classified elsewhere; B95.2 Enterococcus as the cause of diseases classified elsewhere
CPT/HCPCS: 36415; 74177; 80048; 83605; 85025; 87070; 87077; 87186; 87205; 99285-25; A9270-GY; J2543; J3370; J7030; J7040; J7050

== ENCOUNTER 2017-07-23 22:43 | Emergency (ER) | payer MEDICAID ==
[2017-07-24] MEDS ORDERED: Silver Nitrate Applicator Each TOP ONE (00:55)
--- NOTE | 2017-07-24 01:01 | EDM.PDOC ---
ED HPI GENERAL MEDICAL PROBLEM - General Chief Complaint: Skin Complaint Stated Complaint: C-SEC ON 5TH INFECTED Time Seen by Provider: 07/24/17 00:56 Source of Information: Reports: Patient, Family History Limitations: Reports: No Limitations - History of Present Illness INITIAL COMMENTS - FREE TEXT/NARRATIVE: pt arrived with a concern regarding the redness on the abdoman. She did have alot of tap accross the abdoman so she could have reacted to that. She is on augmentin and cipro both. The woud has an open area but in general this has not changed. She has not spiked a fever. Onset: Today Duration: Hour(s): Location: Reports: Abdomen (pt has redness up on the abdoman which is more itchy and not really tender. ) Associated Symptoms: Reports: No Other Symptoms Lower Abdomen Pain Score (Numeric/FACES): 5 - Related Data Allergies Allergy/AdvReac Type Severity Reaction Status Date / Time No Known Allergies Allergy Verified 07/24/17 00:23 Home Meds: Home Meds Sertraline [Zoloft] 100 mg PO BEDTIME 07/10/17 [History] Acetaminophen/oxyCODONE [Percocet 325-5 MG] 1 - 2 tab PO Q4H PRN #30 tablet 12/23 [Rx] Docusate Sodium [Colace] 100 mg PO BID #100 cap 07/13/17 [Rx] Ibuprofen [IJD: Ibuprofen] 600 mg PO Q6H PRN #100 tablet 07/13/17 [Rx] Amoxicillin/Clavulanate K [Augmentin 875-125 MG] 1 tab PO BID #16 tablet [Rx] Ciprofloxacin [IJD: Ciprofloxacin HCl] 500 mg PO BID #16 tab 07/21/17 [Rx] Past Medical History HEENT History: Reports: Impaired Vision 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: Neurological History: Reports: Concussion Psychiatric History: Reports: Anxiety, Depression, Suicide Attempt Endocrine/Metabolic History: Reports: Diabetes, Gestational, Obesity/BMI 30+ - Infectious Disease History Infectious Disease History: Reports: Chicken Pox - Past Surgical History Female Surgical History: Reports: Section Social & Family History - Family History Family Medical History: Noncontributory - Tobacco Use Smoking Status *Q: Current Every Day Smoker Years of Tobacco use: 5 Packs/Tins Daily: 0.5 Used Tobacco, but Quit: No Month/Year Tobacco Last Used: July Second Hand Smoke Exposure: Yes - Caffeine Use Caffeine Use: Reports: Coffee, Soda, Tea - Recreational Drug Use Recreational Drug Use: No ED ROS GENERAL - Review of Systems Review Of Systems: See Below Constitutional: Reports: No Symptoms HEENT: Reports: No Symptoms Respiratory: Reports: No Symptoms Endocrine: Reports: No Symptoms GI/Abdominal: Reports: Other ( redness on the abdoman. ) : Reports: No Symptoms Musculoskeletal: Reports: No Symptoms Skin: Reports: No Symptoms Neurological: Reports: No Symptoms Psychiatric: Reports: No Symptoms ED EXAM, SKIN/RASH Exam: See Below Text/Narrative:: pt arrived with redness on th abdoman where she had alot of tape. Exam Limited By: No Limitations General Appearance: Alert, Anxious Eye Exam: Right Eye: Periorbital Changes Ears: Normal TMs Nose: Normal Inspection Throat/Mouth: Normal Inspection Head: Atraumatic GI/Abdominal: Other ( wound looks clean. she has redness above the incision. This may be a tape reaction) (Female) Exam: Deferred Rectal (Female) Exam: Deferred Back Exam: Normal Inspection Extremities: Normal Inspection Neurological: Alert, Oriented Course - Vital Signs Last Recorded V/S: Last Vital Signs Temp 35.7 C 07/24/17 00:31 Pulse 98 07/24/17 00:31 Resp 16 07/24/17 00:31 BP 147/89 H 07/24/17 00:31 Pulse Ox 98 07/24/17 00:31 - Orders/Labs/Meds Labs: Laboratory Tests 07/24/17 Range/Units 00:54 WBC 8.7 (4.5-11.0) K/uL RBC 3.85 (3.30-5.50) M/uL Hgb 11.0 L (12.0-15.0) g/dL Hct 33.4 L (36.0-48.0) % MCV 87 (80-98) fL MCH 29 (27-31) pg MCHC 33 (32-36) % Plt Count 342 (150-400) K/uL Neut % (Auto) 62 (36-66) % Lymph % (Auto) 27 (24-44) % [place] % (Auto) 9 H (2-6) % Eos % (Auto) 3 (2-4) % Baso % (Auto) 0 (0-1) % Meds: Medications Discontinued Medications Generic Name Dose Route Start Last Admin Trade Name Freq PRN Reason Stop Dose Admin Silver Nitrate 1 each 07/24/17 00:55 07/24/17 01:20 Silver Nitrate TOP 07/24/17 00:56 Not Given ONETIME ONE - Re-Assessments/Exams Free Text/Narrative Re-Assessment/Exam: 07/24/17 01:19 wbc was normal. Departure - Departure Time of Disposition: 01:20 Disposition: Home, Self-Care 01 Condition: Fair Clinical Impression: Encounter for re-check of laceration wound - Discharge Information Referrals: Marvin Troncoso MD [Primary Care Provider] - Forms: ED Department Discharge Care Plan Goals: cont same antibiotics, keep wound clean. to be seen at surgery clinic tomorrow.
== END 2017-07-24 01:32 | disposition home or self-care (01) ==
LOC: JP.ED 22:43
DX: Z39.2 Encounter for routine postpartum follow-up (principal); O90.89 Other complications of the puerperium, not elsewhere classified; O99.335 Smoking (tobacco) complicating the puerperium; O99.215 Obesity complicating the puerperium; F17.210 Nicotine dependence, cigarettes, uncomplicated
CPT/HCPCS: 36415; 85025; 99283

== ENCOUNTER 2018-12-12 23:33 | Emergency (ER) | payer MEDICAID ==
--- NOTE | 2018-12-13 00:22 | EDM.PDOC ---
ED HPI GENERAL MEDICAL PROBLEM - General Chief Complaint: Respiratory Problem Stated Complaint: BODY PAIN, COUGH, SOB Time Seen by Provider: 12/13/18 00:25 Source of Information: Reports: Patient History Limitations: Reports: No Limitations - History of Present Illness INITIAL COMMENTS - FREE TEXT/NARRATIVE: 23 years old female patient presented with chief complaint of productive cough with greenish sputum for 2 or 3 days. Denies any fever. Denies any chest pain or shortness breath. Denies any sick contacts. She has some runny nose and congestion. She is 26 weeks . She was seen up stairs for OB clearance.normal movement. No vaginal discharge or bleeding. Denies any abdominal pain. 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: Neurological History: Reports: Concussion Psychiatric History: Reports: Anxiety, Depression, Suicide Attempt Endocrine/Metabolic History: Reports: Diabetes, Gestational, Obesity/BMI 30+ - Infectious Disease History Infectious Disease History: Reports: Chicken Pox - Past Surgical History Female Surgical History: Reports: Section Social & Family History - Family History Family Medical History: Noncontributory - Tobacco Use Smoking Status *Q: Current Every Day Smoker Years of Tobacco use: 4 Packs/Tins Daily: 1 - Caffeine Use Caffeine Use: Reports: Coffee, Soda, Tea - Recreational Drug Use Recreational Drug Use: No ED ROS GENERAL - Review of Systems Review Of Systems: ROS reveals no pertinent complaints other than HPI. ED EXAM, GENERAL - Physical Exam Exam: See Below Exam Limited By: No Limitations General Appearance: Alert, WD/WN, No Apparent Distress Nose: Normal Inspection, Normal Mucosa, No Blood Throat/Mouth: Normal Inspection, Normal Lips, Normal Teeth, Normal Gums, Normal Oropharynx, Normal Voice, No Airway Compromise Head: Atraumatic, Normocephalic Neck: Normal Inspection, Supple, Non-Tender, Full Range of Motion Respiratory/Chest: No Respiratory Distress, Lungs Clear, Normal Breath Sounds, No Accessory Muscle Use, Chest Non-Tender Cardiovascular: Normal Peripheral Pulses, Regular Rate, Rhythm, No Edema, No Gallop, No JVD, No Murmur, No Rub GI/Abdominal: Normal Bowel Sounds, Soft, Non-Tender, No Organomegaly, No Distention, No Abnormal Bruit, No Mass, Other (gravid uterus) Extremities: Normal Inspection, Normal Range of Motion, Non-Tender, Normal Capillary Refill, No Pedal Edema Neurological: Alert, Oriented, CN II-XII Intact, Normal Cognition, Normal Gait, Normal Reflexes, No Motor/Sensory Deficits Course - Vital Signs Last Recorded V/S: Last Vital Signs Temp 37.4 C 12/12/18 23:57 Pulse 99 12/12/18 23:57 Resp 20 12/12/18 23:57 BP 148/75 H 12/12/18 23:57 Pulse Ox 98 12/12/18 23:57 - Orders/Labs/Meds Meds: Medications Discontinued Medications Generic Name Dose Route Start Last Admin Trade Name Freq PRN Reason Stop Dose Admin Diphenhydramine HCl 25 mg 12/13/18 00:23 Benadryl PO 12/13/18 00:24 ONETIME ONE - Radiology Interpretation Free Text/Narrative:: patient was seen and examined shortly after arrival. Stable. This is most likely viral upper respiratory illness. Patient requesting Robitussin with codeine. I did explain to her this is category C medication and I'm not comfortable prescribing that for her during but she can see her primary doctor to prescribe that for her if she wants. Patient asked for something to help her sleep and I did give her 25 mg oral Benadryl.I did advise her to rest, stay well-hydrated, Tylenol for discomfort, close follow-up with PCP, come back if symptom worsen. Patient agrees with the plan. Stable for discharge. Departure - Departure Time of Disposition: 00:36 Disposition: Home, Self-Care 01 Condition: Good Clinical Impression: Acute upper respiratory infection - Discharge Information Instructions: Upper Respiratory Infection, Adult, [id number], Upper Respiratory Infection, Adult, Cough, Adult, [id number] Referrals: Dione Hanks CNM [Primary Care Provider] - Forms: ED Department Discharge Care Plan Goals: I did advise her to rest, stay well-hydrated, Tylenol for discomfort, close follow-up with PCP, come back if symptom worsen - Assessment/Plan Plan: I did advise her to rest, stay well-hydrated, Tylenol for discomfort, close follow-up with PCP, come back if symptom worsen Follow-up with your primary doctor tomorrow.
[2018-12-13] MEDS ORDERED: diphenhydrAMINE 25 MG Cap PO ONE (00:23)
== END 2018-12-13 00:45 | disposition home or self-care (01) ==
LOC: JP.ED 23:33
DX: O99.512 Diseases of the respiratory system complicating pregnancy, second trimester (principal); J06.9 Acute upper respiratory infection, unspecified; O24.419 Gestational diabetes mellitus in pregnancy, unspecified control; O99.342 Other mental disorders complicating pregnancy, second trimester; F41.9 Anxiety disorder, unspecified; F32.9 Major depressive disorder, single episode, unspecified; O99.332 Smoking (tobacco) complicating pregnancy, second trimester; F17.210 Nicotine dependence, cigarettes, uncomplicated; Z79.899 Other long term (current) drug therapy; Z3A.26 26 weeks gestation of pregnancy; R06.02 Shortness of breath; R05 Cough
CPT/HCPCS: 99283; A9270

== ENCOUNTER 2019-03-14 06:11 | Inpatient (IN) | payer MEDICAID ==
[2019-03-14] MEDS ORDERED: Oxytocin 10 Units/1 ML SDV ONE ×2 (06:47→08:33)
[2019-03-14] MEDS: Sodium Chloride 0.9% 1,000 ML IV SCH ×2 (07:28→19:57)
[2019-03-14] MEDS ORDERED: Ondansetron 4 MG/2 ML SDV ONE (08:33)
[2019-03-14] MEDS ORDERED: Dexamethasone 4 MG/ML SDV ONE (08:33)
[2019-03-14] MEDS ORDERED: ePHEDrine 50 MG/ML SDV ONE (08:33)
[2019-03-14] MEDS ORDERED: cefOXitin 2 GM Vial ONE (08:33)
[2019-03-14] MEDS ORDERED: hydrOXYzine HCl 100 MG/2 ML SDV IM ONE (09:15)
[2019-03-14] MEDS ORDERED: fentaNYL 100 MCG/2 ML SDV IVPUSH ONE (09:29)
[2019-03-14] MEDS ORDERED: Naloxone 0.4 MG/ML SDV IVPUSH PRN (09:47)
[2019-03-14] MEDS ORDERED: Lanolin 100% Cream 40 GM Tube TOP ONE (09:47)
[2019-03-14] MEDS ORDERED: Hydrocortisone 2.5% Crm 30 GM Tube TOP PRN (09:47)
[2019-03-14] MEDS ORDERED: Ondansetron 4 MG Tab.DIS PO PRN (09:47)
[2019-03-14] MEDS ORDERED: ePHEDrine 50 MG/ML SDV IVPUSH PRN (09:47)
[2019-03-14] MEDS ORDERED: Witch Hazel Medicated Pads 100/Jar TOP ONE (09:47)
[2019-03-14] MEDS ORDERED: Benzocaine 20% Top Spray 56 GM Bottle TOP ONE (09:47)
[2019-03-14] MEDS ORDERED: Bisacodyl 10 MG Supp RECTAL PRN (09:47)
[2019-03-14] MEDS ORDERED: diphenhydrAMINE 50 MG/ML SDV IVPUSH PRN (09:47)
[2019-03-14] MEDS ORDERED: Ketorolac 30 MG/ML SDV IVPUSH PRN (09:51)
[2019-03-14] MEDS ORDERED: Morphine PF 150 MG/30 ML PCA Syringe IV PRN (10:25)
[2019-03-14] MEDS ORDERED: Naloxone 0.4 MG/ML SDV IV PRN (10:25)
[2019-03-14] MEDS ORDERED: Morphine 2 MG/ML Syringe IV ONE (10:30)
--- NOTE | 2019-03-14 13:03 | OR ---
DATE OF PROCEDURE: 03/14/2019 SURGEON: Gil Hoyt MD PROCEDURE: section with aftercare. COMPLICATIONS: None. INSTRUMENTATION INSTRUCTOR: Dione Hanks CNM. ANESTHETIC: Spinal. RISKS: Risks, benefits, alternatives, and limitations including, but not limited to infection, bleeding, injury to baby, bladder, intestines, wound complications, and other risks not listed here. PROCEDURE IN DETAIL: The patient was placed in supine position. The previous Pfannenstiel incision would be opened. This was opened using a 15 blade and subsequently with electrocautery. Electrocautery was then used to dissect down and through the fascia. A muscle spreading technique was used to open the rectus muscles. There is a significant amount of scarring noted due to previous . A bladder flap was identified and deflected inferior anteriorly. Bladder blade will be used to protect the bladder during the remainder of the procedure. Using a [place], the uterus was opened without difficulty. Fluid was noted. A bandage scissors was used to enlarge the uterine opening. Baby was delivered without difficulty. This is a large baby, specifically with respect to the head. The cord was then clamped and cut. The Pitocin was given. The placenta was then delivered without difficulty. The uterus was inspected for any remnants material. None was noted. Uterus to be closed with three layers of #1 locking running suture x1 per side. The bladder was then reapproximated. The abdomen was irrigated. Uterus was placed back within the abdomen. The rectus muscles were reapproximated with Vicryl suture. The fascia was then closed with #1 Vicryl running x2. These layers were irrigated. Subcutaneous tissues were closed to decrease potential space with Vicryl sutures. Skin was closed with 4-0 Vicryl, and Dermabond was applied. The patient tolerated the procedure well. Gil Hoyt MD /[id number]
[2019-03-15] MEDS: Sodium Chloride 0.9% 1,000 ML IV SCH (04:04)
[2019-03-15] MEDS: Simethicone 80 MG Tab.Chew PO PRN ×2 (08:19→19:23)
[2019-03-15] MEDS: Acetaminophen/oxyCODONE 325-5 MG Tab PO PRN ×4 (08:19→21:34)
[2019-03-15] MEDS: Docusate Sodium 100 MG Cap PO PRN ×2 (09:41→21:34)
[2019-03-15] MEDS: Prenatal Multivitamin with Calcium/Folic Acid/Iron Tab PO SCH (09:41)
--- NOTE | 2019-03-15 12:20 | PN ---
DATE OF SERVICE: 03/15/2019 SUBJECTIVE: Patient is doing very well today. Pain is well controlled. No nausea, vomiting, shortness of breath, or chest pain. OBJECTIVE: VITAL SIGNS: Stable. She is afebrile. CARDIOVASCULAR: Regular rhythm and rate. RESPIRATORY: Lungs are clear to auscultation bilaterally. ABDOMEN: Dressing is intact. LABORATORY RESULTS: Showed normal white blood cell count, hemoglobin is 7.5. ASSESSMENT: Status post section. PLAN: The patient will have her [place] discontinued, saline lock her IV. We will recheck her hemoglobin in the a.m. The patient is not actively bleeding. We will recheck this tomorrow morning. Gil Hoyt MD /[id number]
[2019-03-15] MEDS: Nicotine 14 MG/24 Hr Patch TRDERM SCH (17:12)
[2019-03-15] MEDS: Labetalol 100 MG Tab PO SCH (17:56)
[2019-03-15] MEDS: Ibuprofen 800 MG Tab PO PRN (22:40)
[2019-03-15] MEDS: Melatonin 3 MG Tab PO PRN (22:43)
[2019-03-16] MEDS: Acetaminophen/oxyCODONE 325-5 MG Tab PO PRN ×5 (02:12→19:45)
[2019-03-16] MEDS: Ibuprofen 800 MG Tab PO PRN ×2 (07:46→15:40)
[2019-03-16] MEDS: Docusate Sodium 100 MG Cap PO PRN ×2 (07:46→19:45)
[2019-03-16] MEDS ORDERED: Lactulose Soln 10 GM/15 ML 15 ML UD Cup PO PRN (08:16)
--- NOTE | 2019-03-16 08:35 | PN ---
DATE OF SERVICE: 03/16/2019 SUBJECTIVE: The patient is doing well. Pain is well controlled. No nausea, vomiting, shortness of breath, or chest pain. OBJECTIVE: VITAL SIGNS: Stable. CARDIOVASCULAR: Regular rhythm and rate. RESPIRATORY: Lungs are clear to auscultation bilaterally. SKIN: Incision healing well. ASSESSMENT: Status post . PLAN: Her hemoglobin has dropped. We will give her 2 units of packed red blood cells. She is not vaginally bleeding at this time and the patient feels subjectively better. We will transfuse and check hemoglobin in the morning. We will add lactulose for bowel movement. Gil Hoyt MD /[id number]
[2019-03-16] MEDS: Labetalol 100 MG Tab PO SCH ×2 (09:25→22:39)
[2019-03-16] MEDS: Nicotine 14 MG/24 Hr Patch TRDERM SCH (09:25)
[2019-03-16] MEDS: Prenatal Multivitamin with Calcium/Folic Acid/Iron Tab PO SCH (09:25)
[2019-03-16] MEDS: Simethicone 80 MG Tab.Chew PO PRN ×2 (10:49→20:27)
[2019-03-16] MEDS: Melatonin 3 MG Tab PO PRN (22:38)
[2019-03-17] MEDS: Ibuprofen 800 MG Tab PO PRN ×2 (00:24→08:53)
[2019-03-17] MEDS: Acetaminophen/oxyCODONE 325-5 MG Tab PO PRN ×3 (01:08→10:30)
[2019-03-17] MEDS: Simethicone 80 MG Tab.Chew PO PRN (06:21)
[2019-03-17] MEDS: Labetalol 100 MG Tab PO SCH ×2 (07:18→08:57)
[2019-03-17] MEDS: Docusate Sodium 100 MG Cap PO PRN (07:35)
[2019-03-17] MEDS: Nicotine 14 MG/24 Hr Patch TRDERM SCH (08:56)
[2019-03-17] MEDS: Prenatal Multivitamin with Calcium/Folic Acid/Iron Tab PO SCH (08:57)
--- NOTE | 2019-03-17 10:50 | PN ---
DATE OF SERVICE: 03/17/2019 SUBJECTIVE: The patient continues to improve today. Pain is well controlled. No nausea, vomiting, shortness of breath, or chest pain. OBJECTIVE: VITAL SIGNS: Vital signs are stable. CARDIOVASCULAR: Regular rhythm and rate. RESPIRATORY: Lungs are clear to auscultation bilaterally. ABDOMEN: Incision is healing well. Significant edema noted in the lower abdomen. No signs of cellulitis or other abnormality. ASSESSMENT: Status post section. PLAN: The patient will be discharged today. Please see discharge summary for further details. Gil Hoyt MD /[id number]
== END 2019-03-17 11:35 | disposition home or self-care (01) | DRG 788 ==
LOC: JP.SDS 06:11 → JP.MS 08:28
PROVIDERS: ADMIT Surgery; ATTEND Surgery
PROC: 10D00Z1 Extraction of Products of Conception, Low, Open Approach (ICD-10-PCS; principal; 2019-03-14)
PROC: 30233N1 Transfusion of Nonautologous Red Blood Cells into Peripheral Vein, Percutaneous Approach (ICD-10-PCS; 2019-03-16)
DX: O34.211 Maternal care for low transverse scar from previous cesarean delivery (principal); Z3A.38 38 weeks gestation of pregnancy; Z37.0 Single live birth
CPT/HCPCS: 36415; 36430; 59409; 80048; 80053; 80305-QW; 81001; 83615; 84550; 85025; 85027; 86850; 86900; 86901; 86920; 86922; 92587; 94762; A9270-GY; J0694; J1100; J2270; J2405; J2590; J3010; J3410; J7030; P9016

== ENCOUNTER 2019-03-17 20:48 | Emergency (ER) | payer MEDICAID ==
[2019-03-17] MEDS ORDERED: NS + KCl 20mEq/L 1,000 ML IV SCH (21:15)
[2019-03-17] MEDS ORDERED: Acetaminophen/HYDROcodone 325-5 MG Tab PO ONE (21:24)
--- NOTE | 2019-03-17 21:29 | EDM.PDOC ---
ED HPI GENERAL MEDICAL PROBLEM - General Chief Complaint: General Stated Complaint: JUST DISCHARGED [id number] Time Seen by Provider: 03/17/19 21:15 Source of Information: Reports: Patient, Old Records, RN History Limitations: Reports: No Limitations - History of Present Illness INITIAL COMMENTS - FREE TEXT/NARRATIVE: 24 yo female was discharged from here this morning after an admission for a c- section. She returns tonight stating that she just feels bad all over. No dysuria or SOB. Had a single [place] in the past 3 hrs for pain and nothing else. Is unaware of fever and has no chills. Denies breast tenderness or redness. Dr. Hoyt performed her . A review of her hospital records shows a rising heart rate for the past several hrs of her admission. Did require a transfusion during her admission for hemorrhage. Is not aware of any unusual vaginal discharge. Onset: Today, Gradual Onset Date: 03/17/19 Duration: Hour(s):, Getting Worse Location: Reports: Generalized Quality: Reports: Ache (has a mild ERICKSON as her only reported pain other than that she has had at her surgical site. ) Severity: Mild Improves with: Reports: Medication Worsens with: Reports: Other (time) Context: Reports: Other (See HPI) Associated Symptoms: Reports: Headaches (mild). 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) ([place] 1 po) Generalized Pain Score (Numeric/FACES): 8 - Related Data Allergies Allergy/AdvReac Type Severity Reaction Status Date / Time No Known Allergies Allergy Verified 03/17/19 21:04 Home Meds: Home Meds Ondansetron [Ondansetron ODT] 4 mg PO Q6H PRN 12/12/18 [History] Labetalol HCl [Labetalol] 100 mg PO BID 02/13/19 [History] FLUoxetine HCl [Prozac] 20 mg PO DAILY 03/12/19 [History] Hydrocodone/Acetaminophen [Hydrocodon-Acetaminophen 5-325] 1 tab PO Q6H PRN 02/23 [History] Past Medical History HEENT History: Reports: Impaired Vision 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: Neurological History: Reports: Concussion Psychiatric History: Reports: Anxiety, Depression, Suicide Attempt Endocrine/Metabolic History: Reports: Diabetes, Gestational, Obesity/BMI 30+ Dermatologic History: Reports: Cellulitis, Other (See Below) Other Dermatologic History: rash during - Infectious Disease History Infectious Disease History: Reports: Chicken Pox - Past Surgical History Female Surgical History: Reports: Section, Other (See Below) Other Female Surgeries/Procedures: c section Mar 16 Social & Family History - Family History Family Medical History: Noncontributory - Tobacco Use Smoking Status *Q: Current Every Day Smoker Years of Tobacco use: 10 Packs/Tins Daily: 0.5 Used Tobacco, but Quit: No Second Hand Smoke Exposure: Yes - Caffeine Use Caffeine Use: Reports: Coffee, Energy Drinks, Soda, Tea - Recreational Drug Use Recreational Drug Use: No ED ROS GENERAL - Review of Systems Review Of Systems: See Below Constitutional: Reports: Malaise HEENT: Reports: No Symptoms Respiratory: Reports: No Symptoms Cardiovascular: Reports: No Symptoms Endocrine: Reports: No Symptoms GI/Abdominal: Reports: No Symptoms : Reports: No Symptoms Musculoskeletal: Reports: No Symptoms Skin: Reports: Other ( wound, recent) Neurological: Reports: Headache (mild) ED EXAM, GENERAL - Physical Exam Exam: See Below Exam Limited By: No Limitations General Appearance: Alert, WD/WN, No Apparent Distress, Obese Eye Exam: Bilateral Eye: Normal Inspection Ears: Normal External Exam, Normal Canal, Hearing Grossly Normal, Normal TMs Ear Exam: Bilateral Ear: Auricle Normal, Canal Normal, TM normal Nose: Normal Inspection, No Blood Throat/Mouth: Normal Inspection, Normal Lips, Normal Oropharynx, Normal Voice, No Airway Compromise Head: Atraumatic, Normocephalic Neck: Normal Inspection Respiratory/Chest: No Respiratory Distress, Lungs Clear, Normal Breath Sounds, No Accessory Muscle Use Cardiovascular: Regular Rate, Rhythm, No Edema, Tachycardia GI/Abdominal: Normal Bowel Sounds, Soft, Non-Tender, No Distention Back Exam: Normal Inspection. No: CVA Tenderness (R), CVA Tenderness (L) Extremities: Normal Inspection, Normal Range of Motion, Non-Tender, No Pedal Edema Neurological: Alert, Oriented, CN II-XII Intact, Normal Cognition, No Motor/ Sensory Deficits Psychiatric: Normal Affect, Normal Mood Skin Exam: Warm, Dry, Intact, No Rash, Erythema (around wound), Increased Warmth (around wound) Course - Vital Signs Last Recorded V/S: Last Vital Signs Temp 37.3 C 03/17/19 23:22 Pulse 101 H 03/17/19 23:22 Resp 20 03/17/19 23:22 BP 152/85 H 03/17/19 23:22 Pulse Ox 97 03/17/19 23:22 - Orders/Labs/Meds Orders: Active Orders 24 hr Category Date Time Status NS + KCl 20mEq/L [Normal Saline with 20 mEq KCl] 1,000 Med 03/17/19 21:15 Active ml IV ASDIRECTED Medication Orders Potassium Chloride/Sodium Chloride (Normal Saline With 20 Meq Kcl) 1,000 mls @ 1,000 mls/hr IV ASDIRECTED EVETTE Last Admin: 03/17/19 21:48 Dose: 1,000 mls/hr Labs: Laboratory Tests 03/17/19 03/17/19 03/17/19 Range/Units 21:47 21:47 21:51 WBC 9.2 (4.5-11.0) K/uL RBC 3.30 (3.30-5.50) M/uL Hgb 9.5 L (12.0-15.0) g/dL Hct 29.4 L (36.0-48.0) % MCV 89 (80-98) fL MCH 29 (27-31) pg MCHC 32 (32-36) % Plt Count 209 (150-400) K/uL Sodium 138 L (140-148) mmol/L Potassium 3.9 (3.6-5.2) mmol/L Chloride 104 (100-108) mmol/L Carbon Dioxide 24 (21-32) mmol/L Anion Gap 13.9 (5.0-14.0) mmol/L BUN 5 L (7-18) mg/dL Creatinine 0.7 (0.6-1.0) mg/dL Est Cr Clr Drug Dosing 95.13 mL/min Estimated GFR (MDRD) > 60 (>60) Glucose 104 (74-106) mg/dL Calcium 8.3 L (8.5-10.1) mg/dL C-Reactive Protein 9.00 H (0.0-0.3) mg/dL Urine Color Red A (YELLOW) Urine Appearance Cloudy A (CLEAR) Urine pH 8.5 H (5.0-8.0) Ur Specific [place] 1.020 (1.008-1.030) Urine Protein 30 H (NEGATIVE) mg/dL Urine Glucose (UA) Negative (NEGATIVE) mg/dL Urine Ketones Negative (NEGATIVE) mg/dL Urine Occult Blood Large H (NEGATIVE) Urine Nitrite Negative (NEGATIVE) Urine Bilirubin Negative (NEGATIVE) Urine Urobilinogen 0.2 (0.2-1.0) EU/dL Ur Leukocyte Esterase Small H (NEGATIVE) Urine RBC 30-40 H (0-5) Urine WBC 5-10 H (0-5) Ur Epithelial Cells Few Amorphous Sediment Not seen Urine Bacteria Moderate Urine Mucus Not seen Meds: Medications Generic Name Dose Route Start Last Admin Trade Name Freq PRN Reason Stop Dose Admin Potassium Chloride/Sodium Chloride 1,000 mls @ 1,000 mls/hr 03/17/19 21:15 21:48 Normal Saline With 20 Meq Kcl IV 1,000 mls/hr ASDIRECTED EVETTE Administration Discontinued Medications Generic Name Dose Route Start Last Admin Trade Name Freq PRN Reason Stop Dose Admin Hydrocodone Bitart/Acetaminophen 1 tab 03/17/19 21:24 03/17/19 21:49 [place] 325-5 Mg PO 03/17/19 21:25 1 tab ONETIME ONE Administration Clindamycin Phosphate 900 mg/ 106 mls @ 200 mls/hr 03/17/19 22:17 03/17/19 23 :19 Sodium Chloride IV 03/17/19 22:48 200 mls/hr ONETIME ONE Administration Ceftriaxone Sodium 1 gm/ 50 mls @ 100 mls/hr 03/17/19 22:18 03/17/19 22:36 Sodium Chloride IV 03/17/19 22:47 100 mls/hr ONETIME ONE Administration Ketorolac Tromethamine 30 mg 03/17/19 22:35 03/17/19 22:47 Toradol IVPUSH 03/17/19 22:36 30 mg ONETIME ONE Administration Departure - Departure Time of Disposition: 00:00 Disposition: Home, Self-Care 01 Condition: Fair Clinical Impression: Surgical wound infection, RUQ abdominal pain - Discharge Information *PRESCRIPTION DRUG MONITORING PROGRAM REVIEWED*: No *COPY OF PRESCRIPTION DRUG MONITORING REPORT IN PATIENT BEBETO: No Instructions: Abdominal Pain, Adult Referrals: Foresman,Dione, CNM [Primary Care Provider] - Forms: ED Department Discharge Additional Instructions: Continue current pain medications. Clear liquids only for the rest of the night. Return tomorrow for a gallbladder ultrasound. Call Dr. Hoyt tomorrow and let him know about your ER visit, likely wound infection, and pending gallbladder ultrasound. Take clindamycin as directed and cephalexin for treatment of your infection. - My Orders Last 24 Hours: My Active Orders 03/17/19 21:15 NS + KCl 20mEq/L [Normal Saline with 20 mEq KCl] 1,000 ml IV ASDIRECTED - Assessment/Plan Last 24 Hours: My Active Orders 03/17/19 21:15 NS + KCl 20mEq/L [Normal Saline with 20 mEq KCl] 1,000 ml IV ASDIRECTED
[2019-03-17] MEDS ORDERED: Clindamycin Phosphate 900 MG in Sodium Chloride 0.9% 100 ML IV ONE (22:17)
[2019-03-17] MEDS ORDERED: cefTRIAXone 1 GM in Sodium Chloride 0.9% 50 ML IV ONE (22:18)
[2019-03-17] MEDS ORDERED: Ketorolac 30 MG/ML SDV IVPUSH ONE (22:35)
== END 2019-03-18 00:03 | disposition home or self-care (01) ==
LOC: JP.ED 20:48
DX: T81.49XA Infection following a procedure, other surgical site, initial encounter (principal); R10.11 Right upper quadrant pain; K21.9 Gastro-esophageal reflux disease without esophagitis; F17.210 Nicotine dependence, cigarettes, uncomplicated; E66.9 Obesity, unspecified; Z68.43 Body mass index [BMI] 50.0-59.9, adult; Z79.899 Other long term (current) drug therapy
CPT/HCPCS: 36415; 80048; 81001; 85027; 86140; 96361; 96365; 96367; 96375; 99284; A9270; J0696; J1885; J3480; J3490; J7030; J7050

== ENCOUNTER 2019-03-18 05:59 | Emergency (ER) | payer MEDICAID ==
[2019-03-18] MEDS ORDERED: Ketorolac 60 MG/2 ML SDV IM ONE (06:43)
--- NOTE | 2019-03-18 06:51 | EDM.PDOC ---
<Brad Alvarez G - Last Filed: 03/18/19 06:43> ED HPI GENERAL MEDICAL PROBLEM - General Chief Complaint: Abdominal Pain Stated Complaint: ABD PAIN RIGHT SIDE Time Seen by Provider: 03/18/19 06:35 Source of Information: Reports: Patient, Old Records, RN History Limitations: Reports: No Limitations - History of Present Illness INITIAL COMMENTS - FREE TEXT/NARRATIVE: 24 yo female was here last night after a recent for just not feeling well. While here she/we determined that she had increased redness around her C- section wound as well as RUQ pain. We ordered an outpatient abdominal US to be done this morning and asked her to see Dr. Hoyt who had performed her C- section. While here last night she got a liter of IV fluids, Toradol 30 mg IV, Clindamycin 900 mg IV, and Rocephin 1 gm IV. When she left she was doing better. She was instructed to have a clear liquid diet after discharge pending her ultrasound study. After leaving her pain has since increased and she says her Renner, last taken about 0330h, is not working. She is here now with her mother who says that most of the women in the family have had to have their gallbladders removed after having babies. Cameron had a normal WBC ct, but an elevated CRP last night. She had a low grade fever when initially seen last night. Cameron thought the Toradol she received last night worked best for her pain and would like some more of this med. Onset: Gradual Onset Date: 03/17/19 Duration: Hour(s):, Getting Worse Location: Reports: Abdomen Quality: Reports: Ache Severity: Moderate Improves with: Reports: Medication Worsens with: Reports: Other (time) Associated Symptoms: Reports: Shortness of Breath (mild with exertion). Denies : Fever/Chills, Nausea/Vomiting Treatments [employer] RESOURCE OFFICER: Reports: Other (see below) (Renner 3.5 hrs ago) RLQ Pain Score (Numeric/FACES): 8 - Related Data Allergies Allergy/AdvReac Type Severity Reaction Status Date / Time No Known Allergies Allergy Verified 03/17/19 21:04 Home Meds: Home Meds Ondansetron [Ondansetron ODT] 4 mg PO Q6H PRN 12/12/18 [History] Labetalol HCl [Labetalol] 100 mg PO BID 02/13/19 [History] FLUoxetine HCl [Prozac] 20 mg PO DAILY 03/12/19 [History] Cephalexin [Keflex] 500 mg PO Q6H #25 capsule 03/17/19 [Rx] Clindamycin HCl [Cleocin] 300 mg PO Q8H #20 cap 03/17/19 [Rx] Hydrocodone/Acetaminophen [Hydrocodon-Acetaminophen 5-325] 1 tab PO Q6H PRN 02/23 [History] Past Medical History HEENT History: Reports: Impaired Vision Gastrointestinal History: Reports: [employer]ATE History: Reports: Neurological History: Reports: Concussion Psychiatric History: Reports: Anxiety, Depression, Suicide Attempt Endocrine/Metabolic History: Reports: Diabetes, Gestational, Obesity/BMI 30+ Dermatologic History: Reports: Cellulitis, Other (See Below) Other Dermatologic History: rash during - Infectious Disease History Infectious Disease History: Reports: Chicken Pox - Past Surgical History Female Surgical History: Reports: Section, Other (See Below) Other Female Surgeries/Procedures: c section Mar 16 Social & Family History - Family History Family Medical History: Noncontributory - Tobacco Use Smoking Status *Q: Current Every Day Smoker Years of Tobacco use: 10 Packs/Tins Daily: 0.5 - Caffeine Use Caffeine Use: Reports: Coffee, Energy Drinks, Soda, Tea - Recreational Drug Use Recreational Drug Use: No ED ROS GENERAL - Review of Systems Review Of Systems: See Below Constitutional: Reports: Malaise. Denies: Fever, Chills HEENT: Reports: No Symptoms Respiratory: Reports: Shortness of Breath (mild with exertion). Denies: Cough Cardiovascular: Reports: Dyspnea on Exertion GI/Abdominal: Reports: Abdominal Pain (RUQ getting worse, and some incisional pain-not worse.). Denies: Black Stool, Bloody Stool, Constipation, Diarrhea, Distension, Flatus, Hematemesis, Hematochezia, Nausea, Vomiting : Denies: Dysuria Musculoskeletal: Reports: No Symptoms Skin: Reports: Erythema (along wound), Wound (surgical from ) Neurological: Reports: No Symptoms ED EXAM, GI/ABD - Physical Exam Exam: See Below Exam Limited By: No Limitations General Appearance: Alert, WD/WN, No Apparent Distress, Obese Eyes: Bilateral: Normal Appearance Ears: Normal External Exam, Normal Canal, Hearing Grossly Normal Nose: Normal Inspection, No Blood Throat/Mouth: Normal Inspection, Normal Oropharynx, Normal Voice, No Airway Compromise Head: Atraumatic, Normocephalic Neck: Normal Inspection Respiratory/Chest: No Respiratory Distress, Lungs Clear, Normal Breath Sounds, No Accessory Muscle Use, Chest Non-Tender Cardiovascular: Regular Rate, Rhythm, No Edema, Tachycardia GI/Abdominal Exam: Normal Bowel Sounds, Soft, No Distention, Tender (RUQ, worse than last night.), Other (Obese) Extremities: Normal Inspection, Normal Range of Motion, Non-Tender, Pedal Edema. No: No Pedal Edema Neurological: Alert, Oriented, CN II-XII Intact, Normal Cognition, No Motor/ Sensory Deficits Psychiatric: Normal Affect, Normal Mood Skin Exam: Warm, Dry, Intact, No Rash, Erythema (less at wound than last night), Wound/Incision ( wound) Course - Vital Signs Last Recorded V/S: Last Vital Signs Temp 37.6 C 03/18/19 06:13 Pulse 111 H 03/18/19 06:13 Resp 28 H 03/18/19 06:13 BP 150/90 H 03/18/19 06:13 Pulse Ox 99 03/18/19 06:13 - Orders/Labs/Meds Orders: Active Orders 24 hr Category Date Time Status Iopamidol [Isovue-300 (61%)] Med 03/18/19 08:08 Active 150 ml IV . DIRECTED PRN Sodium Chloride 0.9% [Normal Saline] 100 ml Med 03/18/19 08:15 Active IV ASDIRECTED Medication Orders Sodium Chloride (Normal Saline) 100 mls @ 3 mls/sec IV ASDIRECTED EVETTE Stop: 03/18/19 12:00 Last Admin: 03/18/19 09:28 Dose: 2.5 mls/sec Iopamidol (Isovue-300 (61%)) 150 ml IV . DIRECTED PRN PRN Reason: RADIOLOGY EXAM Stop: 03/19/19 08:09 Last Admin: 03/18/19 09:28 Dose: 150 ml Labs: Laboratory Tests 03/18/19 03/18/19 03/18/19 Range/Units 07:10 07:10 07:10 WBC 11.6 H (4.5-11.0) K/uL RBC 3.15 L (3.30-5.50) M/uL Hgb 9.2 L (12.0-15.0) g/dL Hct 28.4 L (36.0-48.0) % MCV 90 (80-98) fL MCH 29 (27-31) pg MCHC 32 (32-36) % Plt Count 238 (150-400) K/uL Sodium 139 L (140-148) mmol/L Potassium 3.5 L (3.6-5.2) mmol/L Chloride 106 (100-108) mmol/L Carbon Dioxide 22 (21-32) mmol/L Anion Gap 14.5 H (5.0-14.0) mmol/L BUN 4 L (7-18) mg/dL Creatinine 0.7 (0.6-1.0) mg/dL Est Cr Clr Drug Dosing 95.23 mL/min Estimated GFR (MDRD) > 60 (>60) Glucose 131 H (74-106) mg/dL Lactic Acid 1.1 (0.4-2.0) mmol/L Calcium 8.1 L (8.5-10.1) mg/dL Total Bilirubin 0.4 D (0.2-1.0) mg/dL AST 23 (15-37) U/L ALT 21 (12-78) U/L Alkaline Phosphatase 128 H (46-116) U/L Total Protein 6.3 L (6.4-8.2) g/dL Albumin 2.1 L (3.4-5.0) g/dL Globulin 4.2 H (2.3-3.5) g/dL Albumin/Globulin Ratio 0.5 L (1.2-2.2) Meds: Medications Generic Name Dose Route Start Last Admin Trade Name Freq PRN Reason Stop Dose Admin Sodium Chloride 100 mls @ 3 mls/sec 03/18/19 08:15 03/18/19 09:28 Normal Saline IV 03/18/19 12:00 2.5 mls/sec ASDIRECTED EVETTE Administration Iopamidol 150 ml 03/18/19 08:08 03/18/19 09:28 Isovue-300 (61%) IV 03/19/19 08:09 150 ml . DIRECTED PRN Administration RADIOLOGY EXAM Discontinued Medications Generic Name Dose Route Start Last Admin Trade Name Freq PRN Reason Stop Dose Admin Lactated Ringer's 1,000 mls @ 999 mls/hr 03/18/19 08:04 03/18/19 09:38 Ringers, Lactated IV 03/18/19 09:04 999 mls/hr BOLUS ONE Administration Ketorolac Tromethamine 60 mg 03/18/19 06:43 03/18/19 07:06 Toradol IM 03/18/19 06:44 60 mg ONETIME ONE Administration Departure - Departure Disposition: Home, Self-Care 01 Clinical Impression: Abdominal pain Qualifiers: Abdominal location: right upper quadrant Qualified Code(s): R10.11 - Right upper quadrant pain - Discharge Information Instructions: Constipation, Adult, [id number], Abdominal Pain, Adult Referrals: Dione Hanks CNM [Primary Care Provider] - Forms: ED Department Discharge Additional Instructions: Please using miralax and stool softeners until you have a BM as discussed Return to the ER or see your doctor for fevers, chills, significantly worsening abdominal pain - My Orders Last 24 Hours: My Active Orders 03/18/19 08:08 Iopamidol [Isovue-300 (61%)] 150 ml IV . DIRECTED PRN 03/18/19 08:15 Sodium Chloride 0.9% [Normal Saline] 100 ml IV ASDIRECTED - Assessment/Plan Last 24 Hours: My Active Orders 03/18/19 08:08 Iopamidol [Isovue-300 (61%)] 150 ml IV . DIRECTED PRN 03/18/19 08:15 Sodium Chloride 0.9% [Normal Saline] 100 ml IV ASDIRECTED <Aníbal Alvarez - Last Filed: 03/18/19 11:30> Course - Re-Assessments/Exams Free Text/Narrative Re-Assessment/Exam: Received this patient in sign out from Dr Alvarez pending RUQ US. We await formal read but the [employer] tech has informed me there is no GB wall thickening or stones. Add on LFTs are actually improved from several days ago when she was hospitalized. CBC with mild leukocytosis. Normal lactate. On re-exam the patient has continued abdominal tenderness, primarily in the RUQ. She reports that she has not yet had a bowel movement. We discussed discharge with symptomatic treatment, bowel reg vs further imaging/ work-up. The patient feels strongly that although being home < 24 hrs she already has failed trial of this and would like to pursue further imaging. Providing IVF hydration, did recently get toradol but should be low risk for JW. CT pending. 03/18/19 08:12 Free Text/Narrative Re-Assessment/Exam: Patient reports improvement in symptoms CT shows changes consistent with , no explanation for symptoms. Exam of her lower abdomen around incision is benign. Suspect she is just slow to get normal return for GI tract fxn after recent surgery, narcotics. Discussed bowel reg and pain control using OTC meds Will return for worsening Discharged 03/18/19 11:28 Departure - Departure Time of Disposition: 11:29 - Discharge Information *PRESCRIPTION DRUG MONITORING PROGRAM REVIEWED*: No *COPY OF PRESCRIPTION DRUG MONITORING REPORT IN PATIENT BEBETO: No
[2019-03-18] MEDS ORDERED: Lactated Ringers 1,000 ML IV ONE (08:04)
[2019-03-18] MEDS ORDERED: Iopamidol 612 MG/ML 150 ML Bottle IV PRN (08:08)
[2019-03-18] MEDS ORDERED: Sodium Chloride 0.9% 100 ML IV SCH (08:15)
--- NOTE | 2019-03-18 08:37 | CRLUS ---
INDICATION: Right upper quadrant abdominal pain; recent ; rule out cholecystitis. Comparison : CT abdomen and pelvis July 19, 2017; ultrasound examination of the abdomen October 12, 2011. TECHNIQUE: Ultrasound examination of the abdomen complete. Findings: Diffuse increase in echogenicity of the liver; rule out fatty infiltration. Liver is measuring 16.6 cm in the maximum vertical dimension without any focal hepatic pathology. No evidence of cholelithiasis. 4 mm echogenic density identified attached to the wall of the gallbladder without any acoustic shadowing; rule out small gallbladder polyp ;this was not documented on appreciated on the previous ultrasound or CT of the right upper quadrant of the abdomen. Nondilated common bile duct measuring 6 mm in diameter. No pericholecystic fluid collections. Sonographic Davison`s sign is negative. The pancreas the is suboptimally visualized secondary to increased bowel gas in the upper abdomen. Spleen is measuring 13.3 cm in the maximum vertical dimension .right kidney is measuring 12.1 x 7.3 x 4.4 cm and the left kidney is measuring 12.3 x 5.7 x 4.7 cm. No obstructive uropathy or perinephric pathology. Normal thickness of renal cortex measuring 1.4 cm with normal echogenic texture. Proximal abdominal aorta is unremarkable. No evidence of abdominal ascites. Impression: 1. A 4 mm echogenic density ,non mobile ,in the gallbladder; rule or small gallbladder polyp. 2. No evidence of cholelithiasis or biliary duct dilatation. 3. Mild diffuse fatty infiltration of the liver. 4. Negative ultrasound examination of the abdomen complete otherwise. Dictated by Sydnee Wolf MD @ Mar 18 2019 8:28AM Signed by Dr. Sydnee Wolf @ Mar 18 2019 8:35AM
--- NOTE | 2019-03-18 10:42 | CT ---
Abdomen Pelvis w Cont: 03/18/2019 9:11 AM INDICATION: Right upper quadrant pain, recent section, unremarkable right upper quadrant abdominal ultrasound COMPARISON: Contemporaneous right upper quadrant ultrasound exam, CT of the abdomen and pelvis performed on 07/19/2017. TECHNIQUE: Axial images were obtained through the abdomen and pelvis after administration of intravenous contrast. Coronal and sagittal reformats were obtained and reviewed. FINDINGS: Lower thorax: Visualized portions are within normal limits. Liver: Unremarkable. Gallbladder/biliary: Mildly distended. Borderline wall thickening. Spleen: Enlarged to approximately 16 cm in length. Adrenal glands: Unremarkable. Kidneys: Unremarkable. Stomach: Unremarkable. Duodenum and small bowel: Duodenum is unremarkable. There are some mildly inflamed appearing loops of small bowel in the lower pelvis which are likely reactive to the patient's recent surgery. No evidence of obstruction. Colon: Unremarkable. Appendix: Not visualized. Possibly surgically absent. Pancreas: Unremarkable. Vascular structures: Unremarkable.. Peritoneum: Small amount of complex material is present in the pelvic peritoneum adjacent to the patient's uterus, likely reflecting blood products. Retroperitoneum: Unremarkable. No pathologically enlarged retroperitoneal lymph nodes. Reproductive structures: Bulky appearance of the uterus compatible with history of recent . A large amount of complex material is present in the lower uterine canal, likely representing blood products. A few locules of gas are present within the lower uterine canal as well. Urinary bladder: Unremarkable but incompletely distended. Pelvic sidewall: Small amount of hemorrhage in the right pelvic sidewall region. Inguinal regions: Unremarkable. Osseous structures: Unremarkable. No acute osseous abnormalities or aggressive osseous lesions. IMPRESSION: 1. Findings compatible with history of recent . A moderately large amount of complex material is present in the lower uterine canal which likely reflects blood products. Locules of gas are present within the fluid which may relate to recent surgical intervention. However, the sterility of this fluid is not determined based on imaging. Small amount of associated peritoneal hemorrhage is present. 2. Other ancillary findings as detailed above.
== END 2019-03-18 11:54 | disposition home or self-care (01) ==
LOC: JP.ED 05:59
DX: R10.11 Right upper quadrant pain (principal)
CPT/HCPCS: 36415; 74177; 76700; 80053; 83605; 85027; 96360; 96372; 99285; J1885; J7030; J7120

== ENCOUNTER 2020-09-11 21:15 | Emergency (ER) | payer MEDICAID ==
--- NOTE | 2020-09-11 22:59 | EDM.PDOC ---
ED HPI GENERAL MEDICAL PROBLEM - General Chief Complaint: Abdominal Pain Stated Complaint: FELLS LIKE SOMETHING IS MOVING INSIDE OF HER Time Seen by Provider: 09/11/20 22:16 Source of Information: Reports: Patient, Old Records History Limitations: Reports: No Limitations - History of Present Illness INITIAL COMMENTS - FREE TEXT/NARRATIVE: Cameron is a 25-year-old female presenting to the ED with concerns that she may be . She states that she feels something moving in her low abdomen similar to when she was before. She has had 3 previous pregnancies. She has not had a period since 2016. After her last in February 2020 they implanted a Nexplanon in her left arm. The patient reports that she was seen earlier today by Ledy Dimas in the clinic who did a beta-hCG serum test. She reports that Ledy called her this afternoon to report that the test was negative. This set the patient often a spiral with her anxiety and for the last 7 hours she has been "freaking out" about the negative test. She reports over the last several months she has had marked increase in heartburn, fatigue, and abdominal discomfort similar to when she was with her other 3 children. She denies any fever, chills, diarrhea or constipation. She has not had any urinary symptoms like urgency, frequency, or burning. She states that her urine tests are always negative. In review of her [facility] chart, it shows that she has had positive urine tests multiple times since 2016. In addition, it shows that her beta-hCG quantitative that was done today at the clinic is still pending. Abdominal Pain Score (Numeric/FACES): 5 - Related Data Allergies Allergy/AdvReac Type Severity Reaction Status Date / Time No Known Allergies Allergy Verified 09/11/20 22:04 Home Meds: Home Meds Sertraline [Zoloft] 50 mg PO DAILY 12/01/19 [History] Pantoprazole Sodium [Protonix] 40 mg PO DAILY 30 Days #30 tablet. 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: Neurological History: Reports: Concussion Psychiatric History: Reports: Anxiety, Depression, Suicide Attempt Endocrine/Metabolic History: Reports: Obesity/BMI 30+ Dermatologic History: Reports: Cellulitis, Other (See Below) Other Dermatologic History: rash during - Infectious Disease History Infectious Disease History: Reports: Chicken Pox - Past Surgical History Female Surgical History: Reports: Section, Other (See Below) Other Female Surgeries/Procedures: c section Mar 14 Social & Family History - Family History Family Medical History: No Pertinent Family History - Tobacco Use Tobacco Use Status *Q: Current Every Day Tobacco User Years of Tobacco use: 13 Packs/Tins Daily: 1 - Caffeine Use Caffeine Use: Reports: Coffee, Soda - Recreational Drug Use Recreational Drug Use: No ED ROS GENERAL - Review of Systems Review Of Systems: See Below Constitutional: Reports: Malaise HEENT: Reports: No Symptoms Respiratory: Reports: No Symptoms Cardiovascular: Reports: No Symptoms Endocrine: Reports: Fatigue GI/Abdominal: Reports: Abdominal Pain (Generalized), Nausea, Other (Significant heartburn. She feels something moving in her belly and kicking like when she was .) : Reports: No Symptoms Musculoskeletal: Reports: No Symptoms Skin: Reports: No Symptoms Neurological: Reports: No Symptoms Psychiatric: Reports: Anxiety (Patient is very worked up that she had a negative test today. This is resulted in significant elevation of her blood pressure at 217/115.) Hematologic/Lymphatic: Reports: No Symptoms Immunologic: Reports: No Symptoms ED EXAM, GI/ABD - Physical Exam Exam: See Below Exam Limited By: No Limitations General Appearance: Alert, Anxious, Obese Eyes: Bilateral: EOMI Head: Atraumatic, Normocephalic Neck: Normal Inspection, Supple Respiratory/Chest: No Respiratory Distress, Lungs Clear, Normal Breath Sounds Cardiovascular: Normal Peripheral Pulses, Regular Rate, Rhythm, No Murmur GI/Abdominal Exam: Normal Bowel Sounds, Soft, Tender (Mild generalized tenderness). No: Guarding, Rigid, Rebound Extremities: Normal Inspection Neurological: Alert, Oriented, Normal Cognition, No Motor/Sensory Deficits Psychiatric: Anxious (Extremely anxious) Skin Exam: Warm, Dry, Intact, Normal Color Lymphatic: No Adenopathy Course - Vital Signs Last Recorded V/S: Last Vital Signs Temp 36.0 C L 09/11/20 21:59 Pulse 85 09/11/20 23:24 Resp 18 09/11/20 23:24 BP 152/97 H 09/11/20 23:24 Pulse Ox 100 09/11/20 23:24 - Orders/Labs/Meds Orders: Active Orders 24 hr Category Date Time Status Abdomen Pelvis w Cont [CT] Stat Exams 09/11/20 23:59 Ordered Sodium Chloride 0.9% [Saline Flush] Med 09/11/20 23:59 Ordered 10 ml FLUSH ASDIRECTED PRN Saline Lock Insert [OM.PC] Routine Oth 09/11/20 23:59 Ordered Medication Orders Sodium Chloride (Sodium Chloride 0.9% 10 Ml Syringe) 10 ml FLUSH ASDIRECTED PRN PRN Reason: Keep Vein Open Last Admin: 09/12/20 00:37 Dose: 10 ml Documented by: PREILOR Labs: Laboratory Tests 09/11/20 09/11/20 09/11/20 Range/Units 23:15 23:15 23:15 WBC 7.7 (4.5-11.0) K/uL RBC 4.69 (3.30-5.50) M/uL Hgb 13.9 D (12.0-15.0) g/dL Hct 42.0 (36.0-48.0) % MCV 90 (80-98) fL MCH 30 (27-31) pg MCHC 33 (32-36) % Plt Count 281 (150-400) K/uL Neut % (Auto) 69 H (36-66) % Lymph % (Auto) 23 L (24-44) % [place] % (Auto) 8 H (2-6) % Eos % (Auto) 1 L (2-4) % Baso % (Auto) 0 (0-1) % Sodium 144 (140-148) mmol/L Potassium 3.9 (3.6-5.2) mmol/L Chloride 104 (100-108) mmol/L Carbon Dioxide 25 (21-32) mmol/L Anion Gap 15.4 H (5.0-14.0) mmol/L BUN 8 D (7-18) mg/dL Creatinine 0.8 (0.6-1.0) mg/dL Est Cr Clr Drug Dosing 82.53 mL/min Estimated GFR (MDRD) > 60 (>60) Glucose 119 H (74-106) mg/dL Calcium 9.1 (8.5-10.1) mg/dL Total Bilirubin 0.2 (0.2-1.0) mg/dL AST 22 (15-37) U/L ALT 51 D (12-78) U/L Alkaline Phosphatase 77 (46-116) U/L Total Protein 8.0 (6.4-8.2) g/dL Albumin 4.3 (3.4-5.0) g/dL Globulin 3.7 H (2.3-3.5) g/dL Albumin/Globulin Ratio 1.2 (1.2-2.2) HCG, Quant 1 (0-6) mIU/mL Meds: Medications Generic Name Dose Route Start Last Admin Trade Name Freq PRN Reason Stop Dose Admin Sodium Chloride 10 ml 09/11/20 23:59 09/12/20 00:37 Sodium Chloride 0.9% 10 Ml Syringe FLUSH 10 ml ASDIRECTED PRN Administration Keep Vein Open Discontinued Medications Generic Name Dose Route Start Last Admin Trade Name Freq PRN Reason Stop Dose Admin Sodium Chloride 85 mls @ 4 mls/sec 09/12/20 00:11 09/12/20 00:24 Normal Saline IV 09/12/20 00:12 4 mls/sec ASDIRECTED STA Administration Iopamidol 150 ml 09/12/20 00:11 09/12/20 00:24 Iopamidol 612 Mg/Ml 150 Ml Bottle IV 09/12/20 00:12 150 ml . DIRECTED STA Administration Pantoprazole Sodium 40 mg 09/12/20 00:48 09/12/20 00:55 Pantoprazole 40 Mg Tab.Cr PO 09/12/20 00:49 40 mg ONETIME STA Administration - Radiology Interpretation Free Text/Narrative:: I reviewed the CT of the abdomen and pelvis. She appears to have a normal liver, gallbladder, pancreas, kidneys, and GI tract. There is calcium deposits throughout the internal lumen of the colon consistent with previous ingestion of either Tums or Rolaids. There is a fair amount of stool in the ascending colon. The appendix is normal. Bladder is distended. There is no stranding or inflammation noted. Essentially it is a negative CT of the abdomen and pelvis. - Re-Assessments/Exams Free Text/Narrative Re-Assessment/Exam: 09/12/20 00:03 I reviewed the labs showing a normal CBC and comprehensive metabolic panel. Her beta-hCG quantitative is negative at 1. Patient is more anxious now thinking that she has worms. We will do a CT of the abdomen and pelvis with contrast to better define her abdominal anatomy. In addition, the patient's blood pressure has improved since she has come down with her last pressure being 152/97. 09/12/20 00:[address] of the abdomen and pelvis which was unremarkable for any significant findings. I believe that anxiety is playing a large role here causing increased gastric acid production worsening her reflux. It is unclear what is causing the "feeling that something is moving inside", but I do not believe that it is due to parasites and she is certainly not . We will try to control symptoms with Protonix 40 mg daily and Carafate 1 g 4 times daily for the next 30 days. At this time I believe the patient is suitable for discharge home in satisfactory condition. All questions are answered prior to discharge. Indications to return to the ED were discussed. She may want to talk with her primary care provider regarding her anxiety as there may be treatment options to help her keep it under control. Departure - Departure Time of Disposition: 01:02 Disposition: Home, Self-Care 01 Clinical Impression: Generalized anxiety disorder with panic attacks GERD (gastroesophageal reflux disease) Qualifiers: Esophagitis presence: with esophagitis Esophagitis bleeding: without hemorrhage Qualified Code(s): K21.00 - Gastro-esophageal reflux disease with esophagitis, without bleeding Abdominal pain Qualifiers: Abdominal location: generalized Qualified Code(s): R10.84 - Generalized abdominal pain - Discharge Information Prescriptions: Sucralfate [Carafate] 1 gm PO Q6HR 30 Days #120 tab Pantoprazole Sodium [Protonix] 40 mg PO DAILY 30 Days #30 tablet. Instructions: Generalized Anxiety Disorder, Adult, Food Choices for Gastroesophageal Reflux Disease, Adult, Abdominal Pain, Adult, [id number] Referrals: Dione Hanks CNM [Primary Care Provider] - Forms: ED Department Discharge Care Plan Goals: We are starting you on Protonix 1 tablet daily and Carafate 4 times a day. The Protonix is to help your stomach reduce the amount of acid it produces. The Carafate absorbs acid and can be taken 15 minutes before meals and 15 minutes before bedtime. I have prescribed 30 days for both. I recommend following up with your primary care provider if you need additional medication. You may also want to talk with your primary care provider regarding your anxiety as there are treatment options available for this. I do believe that this is a major factor in what you have been experiencing. Sepsis Event Note (ED) - Evaluation Sepsis Screening Result: No Definite Risk - Focused Exam Vital Signs: Vital Signs Temp Pulse Resp BP Pulse Ox 09/11/20 23:24 85 18 152/97 H 100 09/11/20 21:59 36.0 C L 102 H 16 217/115 H 99 - Problem List & Annotations (1) Abdominal pain SNOMED Code(s): 65481085 Code(s): R10.9 - UNSPECIFIED ABDOMINAL PAIN Status: Acute Priority: Medium Current Visit: Yes Qualifiers: Abdominal location: generalized Qualified Code(s): R10.84 - Generalized abdominal pain (2) GERD (gastroesophageal reflux disease) SNOMED Code(s): 921143316 Code(s): K21.9 - GASTRO-ESOPHAGEAL REFLUX DISEASE WITHOUT ESOPHAGITIS Status: Acute Priority: High Current Visit: Yes Qualifiers: Esophagitis presence: with esophagitis Esophagitis bleeding: without hemorrhage Qualified Code(s): K21.00 - Gastro-esophageal reflux disease with esophagitis, without bleeding (3) Generalized anxiety disorder with panic attacks SNOMED Code(s): 84436255 Code(s): F41.1 - GENERALIZED ANXIETY DISORDER; F41.0 - PANIC DISORDER [EPISODIC PAROXYSMAL ANXIETY] Status: Chronic Priority: High Current Visit: Yes - Problem List Review Problem List Initiated/Reviewed/Updated: Yes - My Orders Last 24 Hours: My Active Orders 09/11/20 23:59 Abdomen Pelvis w Cont [CT] Stat Sodium Chloride 0.9% [Saline Flush] 10 ml FLUSH ASDIRECTED PRN Saline Lock Insert [OM.PC] Routine - Assessment/Plan Last 24 Hours: My Active Orders 09/11/20 23:59 Abdomen Pelvis w Cont [CT] Stat Sodium Chloride 0.9% [Saline Flush] 10 ml FLUSH ASDIRECTED PRN Saline Lock Insert [OM.PC] Routine
[2020-09-11] MEDS ORDERED: Sodium Chloride 0.9% 10 ML Syringe FLUSH PRN (23:59)
[2020-09-12] MEDS ORDERED: Iopamidol 612 MG/ML 150 ML Bottle IV STA (00:11)
[2020-09-12] MEDS ORDERED: Pantoprazole 40 MG Tab.CR PO STA (00:48)
--- NOTE | 2020-09-12 01:02 | CRLCT ---
INDICATION: Abdominal pain TECHNIQUE: Axial images were obtained from the diaphragm to the pubic symphysis. Reformats were obtained in the coronal and sagittal plane. IV Contrast: 150 cc Isovue-300 Oral Contrast: None COMPARISON: None. FINDINGS: Lower chest: Unremarkable. Liver: Diffusely decreased density liver consistent with fatty infiltration. No focal lesions. Gallbladder and bile ducts: Unremarkable. No stones or inflammation. No biliary dilatation. Spleen: Unremarkable. Normal in size without mass. Pancreas: Unremarkable. No mass or inflammation. Adrenal glands: Unremarkable. No nodules. Kidneys: Unremarkable. No masses, stones, or hydronephrosis. Vasculature: Unremarkable. GI tract: No dilated loops of large or small intestine unremarkable appendix. Pelvis: Unremarkable. Bones: Unremarkable for age. IMPRESSION: 1. No dilated loops of large or small intestine. 2. Hepatic steatosis. Please note that all CT scans at this facility use dose modulation, iterative reconstruction, and/or weight-based dosing when appropriate to reduce radiation dose to as low as reasonably achievable. Dictated by Luis Ortiz MD @ 09/12/2020 1:01:[address] Luis Ortiz @ Sep 12 2020 1:01AM
== END 2020-09-12 01:07 | disposition home or self-care (01) ==
LOC: JP.ED 21:15
DX: K21.9 Gastro-esophageal reflux disease without esophagitis (principal); F41.0 Panic disorder [episodic paroxysmal anxiety]; F41.1 Generalized anxiety disorder; Z72.0 Tobacco use
CPT/HCPCS: 36415; 74177; 80053; 84702; 85025; 99284; A9270; Q9967; 99283

== ENCOUNTER 2021-07-25 21:11 | Emergency (ER) | payer MEDICAID ==
[2021-07-25] MEDS ORDERED: Sodium Chloride 0.9% 10 ML Syringe FLUSH PRN (22:01)
[2021-07-25] MEDS ORDERED: Ondansetron 4 MG/2 ML SDV IVPUSH ONE (22:02)
[2021-07-25] MEDS ORDERED: fentaNYL 100 MCG/2 ML SDV IVPUSH ONE (22:02)
[2021-07-25] MEDS ORDERED: Lactated Ringers 1,000 ML IV SCH (22:15)
[2021-07-25] MEDS ORDERED: Ketorolac 30 MG/ML SDV IVPUSH ONE (22:28)
[2021-07-25] MEDS ORDERED: Acetaminophen 325 MG Tab PO ONE (23:37)
== END 2021-07-26 00:44 | disposition home or self-care (01) ==
LOC: JP.ED 21:11
DX: K52.9 Noninfective gastroenteritis and colitis, unspecified (principal); E66.9 Obesity, unspecified; Z68.43 Body mass index [BMI] 50.0-59.9, adult
CPT/HCPCS: 36415; 80053; 81001; 83605; 83690; 84703; 85025; 96374; 96375; 99282; 99284-25; A9270-GY; J1885; J2405; J7120

== ENCOUNTER 2021-07-30 07:53 | Emergency (ER) | payer MEDICAID ==
[2021-07-30] MEDS ORDERED: Alum Hydrox/Mag Hydrox/Simeth 15 ML, Lidocaine 2% 15 ML PO ONE ×2 (08:29)
== END 2021-07-30 09:47 | disposition home or self-care (01) ==
LOC: JP.ED 07:53
DX: K21.9 Gastro-esophageal reflux disease without esophagitis (principal); K29.70 Gastritis, unspecified, without bleeding; E66.9 Obesity, unspecified; F17.210 Nicotine dependence, cigarettes, uncomplicated; Z68.42 Body mass index [BMI] 45.0-49.9, adult
CPT/HCPCS: 36415; 80053; 83690; 85025; 99283; 99284; A9270-GY

== ENCOUNTER 2021-08-24 17:52 | Emergency (ER) | payer MEDICAID | END 2021-08-24 20:46 | disposition home or self-care (01) | LOC: JP.ED 17:52 | DX: O99.611 Diseases of the digestive system complicating pregnancy, first trimester (principal); K60.2 Anal fissure, unspecified; Z72.0 Tobacco use; Z3A.01 Less than 8 weeks gestation of pregnancy | CPT/HCPCS: 36415; 80053; 84702; 85025; 99282; 99284 ==

== ENCOUNTER 2021-08-25 15:56 | Emergency (ER) | payer MEDICAID ==
[2021-08-25] MEDS ORDERED: Acetaminophen 325 MG Tab PO ONE (16:51)
[2021-08-25] MEDS ORDERED: Ondansetron 4 MG/2 ML SDV IVPUSH ONE (16:51)
[2021-08-25] MEDS ORDERED: Lactated Ringers 1,000 ML IV ONE (16:51)
[2021-08-25] MEDS ORDERED: Sodium Chloride 0.9% 10 ML Syringe FLUSH PRN (16:51)
== END 2021-08-25 19:15 | disposition home or self-care (01) ==
LOC: JP.ED 15:56
DX: O20.9 Hemorrhage in early pregnancy, unspecified (principal); O99.611 Diseases of the digestive system complicating pregnancy, first trimester; K21.9 Gastro-esophageal reflux disease without esophagitis; Z79.899 Other long term (current) drug therapy; Z72.0 Tobacco use; Z3A.01 Less than 8 weeks gestation of pregnancy
CPT/HCPCS: 76801; 76817; 81001; 96374; 99282; 99284-25; A9270-GY; J2405; J3490; J7120

== ENCOUNTER 2022-02-16 22:20 | Emergency (ER) | payer MEDICAID | END 2022-02-16 23:51 | disposition home or self-care (01) | LOC: JP.ED 22:20 | DX: L08.9 Local infection of the skin and subcutaneous tissue, unspecified (principal); E66.9 Obesity, unspecified; Z68.42 Body mass index [BMI] 45.0-49.9, adult; Z79.899 Other long term (current) drug therapy | CPT/HCPCS: 99283 ==

== ENCOUNTER 2024-06-07 08:32 | Day surgery (SDC) | payer MEDICAID ==
[2024-06-07 09:11] LABS: BASOPHILS PERCENT AUTO 0.3 % (0.1-1.3); EOSINOPHILS ABSOLUTE AUTO 0.14 K/uL (0.00-0.40); EOSINOPHILS PERCENT AUTO 2.1 % (0.0-5.4); HEMOGLOBIN 13.9 g/dL (11.2-15.5); IMMATURE GRAN PERCENT AUTO 0.1 % (0.0-0.7); LYMPHOCYTES ABSOLUTE AUTO 1.81 K/uL (0.8-3.3); LYMPHOCYTES PERCENT AUTO 26.8 % (11.4-47.7); MEAN CORPUSCULAR HGB CONC 35.6 g/dL (31.6-35.5); MEAN CORPUSCULAR VOLUME 89.9 fL (81.4-99.0); MONOCYTES ABSOLUTE AUTO 0.49 K/uL (0.20-0.90); MONOCYTES PERCENT AUTO 7.2 % (3.3-12.6); NEUTROPHILS ABSOLUTE AUTO 4.29 K/uL (1.0-7.6); NEUTROPHILS PERCENT AUTO 63.5 % (40.0-78.1); PLATELET COUNT,PLT 264 K/uL (130-375); RED BLOOD CELL COUNT 4.34 M/uL (3.77-5.24); WHITE BLOOD CELL COUNT,WBC 6.8 K/uL (3.2-11.0)
[2024-06-07 09:12] LABS: BASOPHILS ABSOLUTE AUTO 0.02 K/uL (0.00-0.10); IMMATURE GRAN ABSOLUTE AUTO 0.01 K/uL (0.00-0.23)
[2024-06-07] MEDS: Morphine 2 MG/ML SYRINGE IVPUSH ONE ×2 (09:16→10:47)
[2024-06-07] MEDS: Ondansetron 4 MG/2 ML SDV IVPUSH ONE ×2 (09:16→10:48)
[2024-06-07] MEDS: Sodium Chloride 0.9% 1,000 ML IV ONE ×2 (09:17→10:35)
[2024-06-07 09:33] LABS: ALANINE AMINOTRANSFERASE,ALT 56 U/L (12-78); ALKALINE PHOSPHATASE 78 U/L (46-116); ASPARTATE AMNIOTRANSFERASE,AST 25 U/L (15-37); BILIRUBIN TOTAL 0.2 mg/dL (0.2-1.0); BLOOD UREA NITROGEN,BUN 10 mg/dL (7-18); CARBON DIOXIDE,CO2 25 mmol/L (21-32); CHLORIDE,CL 102 mmol/L (100-108); CREATININE 0.8 mg/dL (0.6-1.0); EST CRCL DRUG DOSING (CG) 83.54 mL/min; ESTIMATED GFR 104 mL/min (>60); GLUCOSE RANDOM 116 mg/dL (74-106); PROTEIN TOTAL,TP 7.9 g/dL (6.4-8.2); SODIUM,NA 139 mmol/L (140-148)
[2024-06-07 09:37] LABS: APPEARANCE,URINE CLEAR (CLEAR); BILIRUBIN,URINE NEGATIVE (NEGATIVE); COLOR,URINE YELLOW (YELLOW); GLUCOSE,URINE NEGATIVE (NEGATIVE); KETONES,URINE NEGATIVE (NEGATIVE); LEUKOCYTE ESTERASE,URINE NEGATIVE (NEGATIVE); NITRITE,URINE NEGATIVE (NEGATIVE); OCCULT BLOOD,URINE NEGATIVE (NEGATIVE); PH,URINE 5.5 (5.0-8.0); PROTEIN,URINE NEGATIVE (NEGATIVE); UROBILINOGEN,URINE 0.2 EU/dL (0.2-1.0)
[2024-06-07 09:39] LABS: LACTIC ACID 1.3 mmol/L (0.4-2.0)
[2024-06-07 09:43] LABS: AMORPHOUS SEDIMENT,URINE NOT SEEN; BACTERIA,URINE FEW; EPITHELIAL CELLS,URINE FEW; MUCUS,URINE MODERATE; RBC,URINE 0-5 (0-5); WBC,URINE 0-5 (0-5)
[2024-06-07] MEDS ORDERED: Ondansetron 4 MG/2 ML SDV ONE (12:10)
[2024-06-07] MEDS ORDERED: Glycopyrrolate 0.2 MG/ML 5 ML MDV ONE (12:10)
[2024-06-07] MEDS ORDERED: fentaNYL 250 MCG/5 ML SDV ONE ×2 (12:10→12:44)
[2024-06-07] MEDS ORDERED: Succinylcholine 200 MG/10 ML MDV ONE (12:10)
[2024-06-07] MEDS ORDERED: Neostigmine Methylsulfate 10 MG/10 ML MDV ONE (12:10)
[2024-06-07] MEDS ORDERED: Propofol 200 MG/20 ML SDV ONE (12:10)
[2024-06-07] MEDS ORDERED: Rocuronium 50 MG/5 ML Vial ONE (12:10)
[2024-06-07] MEDS ORDERED: Dexamethasone 4 MG/ML SDV ONE (12:10)
[2024-06-07] MEDS ORDERED: Sodium Chloride 0.9% 20 ML ONE (12:39)
[2024-06-07] MEDS ORDERED: ceFAZolin 1 GM Vial ONE (12:39)
[2024-06-07] MEDS: Bupivacaine 0.5%/EPINEPHrine 1:200,000 50 ML MDV ONE (13:00)
[2024-06-07] MEDS ORDERED: Ketorolac 30 MG/ML SDV ONE (13:19)
[2024-06-07] MEDS ORDERED: fentaNYL 100 MCG/2 ML SDV ONE (13:31)
[2024-06-07] MEDS: oxyCODONE 5 MG Tab PO PRN (15:14)
== END 2024-06-07 16:22 | disposition home or self-care (01) ==
LOC: JP.ED 08:32 → JP.SDS 11:59
PROVIDERS: ATTEND Surgery
DX: K80.12 Calculus of gallbladder with acute and chronic cholecystitis without obstruction (principal); K21.9 Gastro-esophageal reflux disease without esophagitis; F32.A Depression, unspecified; F41.9 Anxiety disorder, unspecified; F17.210 Nicotine dependence, cigarettes, uncomplicated
CPT/HCPCS: 00790-QZ; 36415; 47562; 74176; 76705; 80053; 81001; 83605; 83690; 84703; 85025; 88304; 96361; 96374; 96375; 96376; 99203; 99284; 99285-25; A9270-GY; J0330; J0690; J1100; J1596; J1885; J2270; J2405; J2704; J2710; J3010; J3490; J7030